=== PATIENT | male | born 1985 | race Caucasian/White ===

== ENCOUNTER 2018-02-06 18:38 | Emergency (ER) | payer OTHER, SELFPAY ==
--- NOTE | 2018-02-06 19:38 | EDPHYS ---
Physician Documentation [facility] Name: Karl Andujar Age: 32 yrs Sex: Male : 1985 Arrival Date: 02/06/2018 Time: 18:41 Bed 24 Private MD: ED Physician Gliberto Tracey HPI: 02/06 19:08 This 32 yrs old Male presents to ER via Ambulatory with complaints of kav Medication Refill. 19:25 The patient presents to the emergency department requesting refill(s) for: Zoloft, kav HYDROXIZINE, GABAPENTIN. Patient reports that [facility] and is need of meds until the bulk package arrives.. Historical: - Allergies: 18:53 No Known Allergies; sv - PMHx: 18:53 None; sv - PSHx: 18:53 Eye surgery; sv - Immunization history:: Adult Immunizations up to date. - Social history:: Smoking status: Patient uses tobacco products, smokes one-half pack cigarettes per day. - Ebola Screening: : No symptoms or risks identified at this time. - Family history:: not pertinent. - Hospitalizations: : No recent hospitalization is reported. ROS: 19:33 Constitutional: Negative for fever, chills, and weight loss, Eyes: Negative for injury, kav pain, redness, and discharge, ENT: Negative for injury, pain, and discharge, Neck: Negative for injury, pain, and swelling, Cardiovascular: Negative for chest pain, palpitations, and edema, Respiratory: Negative for shortness of breath, cough, wheezing, and pleuritic chest pain, Abdomen/GI: Negative for abdominal pain, nausea, vomiting, diarrhea, and constipation, Back: Negative for injury and pain, : Negative for injury, bleeding, discharge, and swelling, MS/Extremity: Negative for injury and deformity, Skin: Negative for injury, rash, and discoloration, Neuro: Negative for headache, weakness, numbness, tingling, and seizure, Allergy/Immunology: Negative for hives, rash, and allergies, Endocrine: Negative for neck swelling, polydipsia, polyuria, polyphagia, and marked weight changes, Hematologic/Lymphatic: Negative for swollen nodes, abnormal bleeding, and unusual bruising. 19:33 Psych: Positive for anxiety, depression. Exam: 19:33 Constitutional: This is a well developed, well nourished patient who is awake, alert, kav and in no acute distress. Head/Face: Normocephalic, atraumatic. Eyes: Pupils equal round and reactive to light, extra-ocular motions intact. Lids and lashes normal. Conjunctiva and sclera are non-icteric and not injected. Cornea within normal limits. Periorbital areas with no swelling, redness, or edema. ENT: Nares patent. No nasal discharge, no septal abnormalities noted. Tympanic membranes are normal and external auditory canals are clear. Oropharynx with no redness, swelling, or masses, exudates, or evidence of obstruction, uvula midline. Mucous membranes moist. Neck: Trachea midline, no thyromegaly or masses palpated, and no cervical lymphadenopathy. Supple, full range of motion without nuchal rigidity, or vertebral point tenderness. No Meningismus. Chest/axilla: Normal chest wall appearance and motion. Nontender with no deformity. No lesions are appreciated. Cardiovascular: Regular rate and rhythm with a normal S1 and S2. No gallops, murmurs, or rubs. Normal PMI, no JVD. No pulse deficits. Respiratory: Lungs have equal breath sounds bilaterally, clear to auscultation and percussion. No rales, rhonchi or wheezes noted. No increased work of breathing, no retractions or nasal flaring. Abdomen/GI: Soft, non-tender, with normal bowel sounds. No distension or tympany. No guarding or rebound. No evidence of tenderness throughout. Back: No spinal tenderness. No costovertebral tenderness. Full range of motion. Skin: Warm, dry with normal turgor. Normal color with no rashes, no lesions, and no evidence of cellulitis. MS/ Extremity: Pulses equal, no cyanosis. Neurovascular intact. Full, normal range of motion. Neuro: Awake and alert, GCS 15, oriented to person, place, time, and situation. Cranial nerves II-XII grossly intact. Motor strength 5/5 in all extremities. Sensory grossly intact. Cerebellar exam normal. Normal gait. 19:33 Psych: Behavior/mood is pleasant, Affect is calm, Oriented to person, place, time, Patient has no thoughts/intents to harm self or others. Judgement / Insight is normal. Memory is normal. Delusions/hallucinations are not present. Vital Signs: 18:54 BP 143 / 93; Pulse 96; Resp 18; Temp 98.6; Pulse Ox 97% ; Weight 68.04 kg; Height 5 ft. sv 3 in. (160.02 cm); Pain 0/10; 20:06 BP 121 / 82; Pulse 83; Resp 18; Pulse Ox 97% on R/A; tl3 18:54 Body Mass Index 26.57 (68.04 kg, 160.02 cm) sv MDM: 19:00 Medical screening is not applicable. kav 19:33 Data reviewed: vital signs, nurses notes. kav Administered Medications: No medications were administered Disposition: 02/06/18 19:38 Discharged to Home. Impression: MEDICATION REFILL, Anxiety disorder, unspecified, Major depressive disorder, recurrent. - Condition is Stable. - Discharge Instructions: Generalized Anxiety Disorder, Major Depressive Disorder, [id number]. - Prescriptions for gabapentin 400 mg Oral capsule - take 3 capsule by ORAL route 3 times per day; 270 capsule. Hydroxyzine HCl 50 mg Oral Tablet - take 1 tablet by ORAL route every 8 hours As needed; 30 tablet. Zoloft 50 mg Oral Tablet - take 2 tablet by ORAL route once daily; 60 tablet. - Medication Reconciliation Form, Thank You Letter form. - Follow up: Private Physician; When: 5 - 6 days; Reason: Recheck today's complaints, Continuance of care, Re-evaluation by your physician. - Problem is chronic. - Symptoms are unchanged. Addendum: 02/15/2018 21:07 Co-signature as Attending Physician, Gilberto Tracey MD. r n Signatures: Yesenia Alston RN RN sv Vern, Katherine, Gilberto Olson MD MD rn Lowrey, Tammy, RN RN tl3 Corrections: (The following items were deleted from the chart) 02/06 20:07 19:38 02/06/2018 19:38 Discharged to Home. Impression: MEDICATION REFILL; Anxiety tl3 disorder, unspecified; Major depressive disorder, recurrent. Condition is Stable. Forms are Medication Reconciliation Form, Thank You Letter, Antibiotic Education, Prescription Opioid Use. Follow up: Private Physician; When: 5 - 6 days; Reason: Recheck today's complaints, Continuance of care, Re-evaluation by your physician. Problem is chronic. Symptoms are unchanged. kav
--- NOTE | 2018-02-06 19:38 | ER ---
Nurse's Notes [facility] Name: Karl Andujar Age: 32 yrs Sex: Male : 1985 Arrival Date: 02/06/2018 Time: 18:41 Bed 24 Private MD: Diagnosis: MEDICATION REFILL;Anxiety disorder, unspecified;Major depressive disorder, recurrent Presentation: 02/06 18:52 Presenting complaint: Patient states: needs refill for zoloft, hydroxyzine and sv gabapentin. Transition of care: patient was not received from another setting of care. Onset of symptoms was February 06, 2018. Care prior to arrival: None. 18:52 Method Of Arrival: Ambulatory sv 18:52 Acuity: IRENE 5 sv 20:07 Risk Assessment: Do you want to hurt yourself or someone else? Patient reports no tl3 desire to harm self or others. Initial Sepsis Screen: Does the patient meet any 2 criteria? No. Patient's initial sepsis screen is negative. Does the patient have a suspected source of infection? No. Patient's initial sepsis screen is negative. Triage Assessment: 20:07 General: Appears in no apparent distress. comfortable. tl3 Historical: - Allergies: 18:53 No Known Allergies; sv - PMHx: 18:53 None; sv - PSHx: 18:53 Eye surgery; sv - Immunization history:: Adult Immunizations up to date. - Social history:: Smoking status: Patient uses tobacco products, smokes one-half pack cigarettes per day. - Ebola Screening: : No symptoms or risks identified at this time. - Family history:: not pertinent. - Hospitalizations: : No recent hospitalization is reported. Screenin:59 Abuse screen: Denies threats or abuse. Nutritional screening: No deficits noted. tl3 Tuberculosis screening: No symptoms or risk factors identified. Fall Risk None identified. Assessment: 18:59 Reassessment: pt has been out of his meds and needs refills. General: Appears in no tl3 apparent distress. comfortable, slender, well groomed, well developed, well nourished, Behavior is calm, cooperative, appropriate for age. Pain: Denies pain. Neuro: Level of Consciousness is awake, alert, obeys commands, Oriented to person, place, time, situation, Appropriate for age. Cardiovascular: Patient's skin is warm and dry. Respiratory: Airway is patent Respiratory effort is even, unlabored, Respiratory pattern is regular, symmetrical. GI: No signs and/or symptoms were reported involving the gastrointestinal system. : No signs and/or symptoms were reported regarding the genitourinary system. EENT: No signs and/or symptoms were reported regarding the EENT system. Derm: No signs and/or symptoms reported regarding the dermatologic system. Musculoskeletal: No signs and/or symptoms reported regarding the musculoskeletal system. 20:06 Reassessment: Patient appears in no apparent distress at this time. No changes from tl3 previously documented assessment. Patient and/or family updated on plan of care and expected duration. Pain level reassessed. Patient is alert, oriented x 3, equal unlabored respirations, skin warm/dry/pink. Vital Signs: 18:54 BP 143 / 93; Pulse 96; Resp 18; Temp 98.6; Pulse Ox 97% ; Weight 68.04 kg; Height 5 ft. sv 3 in. (160.02 cm); Pain 0/10; 20:06 BP 121 / 82; Pulse 83; Resp 18; Pulse Ox 97% on R/A; tl3 18:54 Body Mass Index 26.57 (68.04 kg, 160.02 cm) sv ED Course: 18:41 Patient arrived in ED. mr 18:53 Triage completed. sv 18:54 Arm band placed on right wrist. Patient placed in waiting room, Patient notified of sv wait time. 18:58 Calista Cuadra, RHETT is Primary Nurse. tl3 18:59 Patient has correct armband on for positive identification. tl3 18:59 No provider procedures requiring assistance completed. Patient did not have IV access tl3 during this emergency room visit. 19:00 [facility] Lowe FNP [facility]. jennifer 19:00 Gilberto Tracey MD is Attending Physician. jennifer Administered Medications: No medications were administered Outcome: 19:38 Discharge ordered by . jennifer 20:06 Discharged to home ambulatory. tl3 20:06 Condition: stable 20:06 Discharge instructions given to patient, Instructed on discharge instructions, follow up and referral plans. medication usage, Demonstrated understanding of instructions, follow-up care, medications, Prescriptions given X 3. 20:07 Patient left the ED. tl3 Signatures: Yesenia Alston RN RN Bindu Lowe FNP FNP kav Rivera, Maria mr Khalif, Calista, RN RN tl3
== END 2018-02-06 20:07 | disposition home or self-care (01) ==
LOC: ER 18:38
DX: Z76.0 Encounter for issue of repeat prescription (principal); F41.9 Anxiety disorder, unspecified; F33.9 Major depressive disorder, recurrent, unspecified; F17.210 Nicotine dependence, cigarettes, uncomplicated
CPT/HCPCS: 99282

== ENCOUNTER 2018-03-13 18:40 | Emergency (ER) | payer SELFPAY ==
--- NOTE | 2018-03-13 20:37 | ER ---
Nurse's Notes [facility] Name: Karl Andujar Age: 32 yrs Sex: Male : 1985 Arrival Date: 03/13/2018 Time: 18:42 Bed Waiting Private MD: None, None Diagnosis: Presentation: 03/13 19:55 Presenting complaint: Accidentally charted on wrong patient. Info deleted. Pt no answer sr5 at 1915, 1925, 1930. Historical: ED Course: 18:42 Patient arrived in ED. sb2 18:42 None, None is Private Physician. sb2 19:30 Toño Pandey RN is Primary Nurse. sr5 19:32 Elton Graham MD is Attending Physician. tw4 19:32 Triage completed. sr5 Administered Medications: No medications were administered Outcome: 19:56 Patient left the ED. sr5 Signatures: Toño Pandey RN RN sr5 Elton Graham MD MD tw4 Kristie Garrison sb2 Corrections: (The following items were deleted from the chart) 19:56 19:31 Presenting complaint: Patient states: pain/swelling RIGHT upper teeth/gum/cheek x sr5 7 days. "I got a tooth infection but can't afford dentist until Sunday". sr5 19:56 19:31 Transition of care: patient was not received from another setting of care. sr5 sr5 19:56 19:31 Onset of symptoms was March 06, 2018 sr5 sr5 19:56 19:31 Risk Assessment: Do you want to hurt yourself or someone else? Patient reports no sr5 desire to harm self or others. sr5 19:56 19:31 Care prior to arrival: Medication(s) given: Tylenol, and Motrin approx 5pm sr5 sr5 19:56 19:31 Method Of Arrival: Ambulatory sr5 sr5 19:56 19:31 Acuity: IRENE 4 sr5 sr5 19:32 Allergies: No Known Allergies; sr5 sr5 19:32 Home Meds: None; sr5 sr5 19:32 PMHx: None; sr5 sr5 19:32 PSHx: None; sr5 sr5 19:56 19:32 BP 124 / 85; Pulse 89bpm; Resp 18bpm; Pulse Ox 98%; Temp 97.8F; 61.69 kg; Height sr5 5 ft. 4 in.; BMI: 23.3; Pain 10; sr5 19:56 19:32 Arm band placed on sr5 sr5
== END 2018-03-13 19:56 | disposition left against medical advice (07) ==
LOC: ER 18:40
DX: Z53.21 Procedure and treatment not carried out due to patient leaving prior to being seen by health care provider (principal)
CPT/HCPCS: 99281

== ENCOUNTER 2018-03-18 09:05 | Emergency (ER) | payer SELFPAY ==
--- NOTE | 2018-03-18 09:51 | EDPHYS ---
Physician Documentation [facility] Name: Karl Andujar Age: 32 yrs Sex: Male : 1985 Arrival Date: 03/18/2018 Time: 09:07 Bed 12 Private MD: ED Physician Carlton Hernandez HPI: 03/18 09:48 This 32 yrs old Male presents to ER via Ambulatory with complaints of Rx dontae refill. 09:48 needs meds. Onset: The symptoms/episode began/occurred 1 day(s) ago. Severity of dontae symptoms: At their worst the symptoms were needs meds , out. The patient has not experienced similar symptoms in the past. Historical: - Allergies: 09:16 No Known Allergies; hj - Home Meds: 09:16 Zoloft 100 mg Oral tab 1 tab once daily [Active]; prazosin 2 mg Oral cap 1 cap daily hj [Active]; hydroxyzine HCl 50 mg Oral tab 1 tab as needed [Active]; - PMHx: 09:16 Depression; Anxiety; nightmares; hj - PSHx: 09:16 None; hj - Immunization history:: Adult Immunizations up to date. - Social history:: Smoking status: Patient uses tobacco products, smokes one pack cigarettes per day. Patient/guardian denies using alcohol. - Ebola Screening: : Patient negative for fever greater than or equal to 101.5 degrees Fahrenheit, and additional compatible Ebola Virus Disease symptoms Patient denies exposure to infectious person Patient denies travel to an Ebola-affected area in the 21 days before illness onset. ROS: 09:49 Constitutional: Negative for fever, chills, and weight loss, Eyes: Negative for injury, dontae pain, redness, and discharge, ENT: Negative for injury, pain, and discharge, Neck: Negative for injury, pain, and swelling, Cardiovascular: Negative for chest pain, palpitations, and edema, Respiratory: Negative for shortness of breath, cough, wheezing, and pleuritic chest pain, Abdomen/GI: Negative for abdominal pain, nausea, vomiting, diarrhea, and constipation, Back: Negative for injury and pain, : Negative for injury, bleeding, discharge, and swelling, MS/Extremity: Negative for injury and deformity, Skin: Negative for injury, rash, and discoloration, Neuro: Negative for headache, weakness, numbness, tingling, and seizure, Psych: Negative for depression, anxiety, suicide ideation, homicidal ideation, and hallucinations, Allergy/Immunology: Negative for hives, rash, and allergies, Endocrine: Negative for neck swelling, polydipsia, polyuria, polyphagia, and marked weight changes, Hematologic/Lymphatic: Negative for swollen nodes, abnormal bleeding, and unusual bruising. Exam: 09:49 Constitutional: This is a well developed, well nourished patient who is awake, alert, dontae and in no acute distress. Head/Face: Normocephalic, atraumatic. Eyes: Pupils equal round and reactive to light, extra-ocular motions intact. Lids and lashes normal. Conjunctiva and sclera are non-icteric and not injected. Cornea within normal limits. Periorbital areas with no swelling, redness, or edema. ENT: Nares patent. No nasal discharge, no septal abnormalities noted. Tympanic membranes are normal and external auditory canals are clear. Oropharynx with no redness, swelling, or masses, exudates, or evidence of obstruction, uvula midline. Mucous membranes moist. Neck: Trachea midline, no thyromegaly or masses palpated, and no cervical lymphadenopathy. Supple, full range of motion without nuchal rigidity, or vertebral point tenderness. No Meningismus. Chest/axilla: Normal chest wall appearance and motion. Nontender with no deformity. No lesions are appreciated. Cardiovascular: Regular rate and rhythm with a normal S1 and S2. No gallops, murmurs, or rubs. Normal PMI, no JVD. No pulse deficits. Respiratory: Lungs have equal breath sounds bilaterally, clear to auscultation and percussion. No rales, rhonchi or wheezes noted. No increased work of breathing, no retractions or nasal flaring. Abdomen/GI: Soft, non-tender, with normal bowel sounds. No distension or tympany. No guarding or rebound. No evidence of tenderness throughout. Back: No spinal tenderness. No costovertebral tenderness. Full range of motion. Skin: Warm, dry with normal turgor. Normal color with no rashes, no lesions, and no evidence of cellulitis. MS/ Extremity: Pulses equal, no cyanosis. Neurovascular intact. Full, normal range of motion. Neuro: Awake and alert, GCS 15, oriented to person, place, time, and situation. Cranial nerves II-XII grossly intact. Motor strength 5/5 in all extremities. Sensory grossly intact. Cerebellar exam normal. Normal gait. Psych: Awake, alert, with orientation to person, place and time. Behavior, mood, and affect are within normal limits. Vital Signs: 09:17 BP 136 / 91; Pulse 98; Resp 18; Temp 98.1(TE); Pulse Ox 99% on R/A; Weight 68.04 kg; hj Height 5 ft. 3 in. (160.02 cm); Pain 0/10; 09:17 Body Mass Index 26.57 (68.04 kg, 160.02 cm) hj MDM: 09:20 Patient medically screened. dontae Administered Medications: No medications were administered Disposition: 03/18/18 09:51 Discharged to Home. Impression: Major depressive disorder, recurrent - hx of, Anxiety disorder, unspecified - hx of. - Condition is Stable. - Discharge Instructions: Panic Attacks, [id number], Generalized Anxiety Disorder. - Prescriptions for Zoloft 100 mg Oral tablet - take 1 tablet by ORAL route once daily; 5 tablet. gabapentin 400 mg Oral capsule - take 1 capsule by ORAL route 3 times per day; 15 capsule. Hydroxyzine HCl 50 mg Oral Tablet - take 1 tablet by ORAL route every 8 hours As needed; 20 tablet. Prazosin 2 mg Oral Capsule - take 1 capsule by ORAL route once daily; 5 capsule. - Medication Reconciliation Form, Thank You Letter, Antibiotic Education, Prescription Opioid Use form. - Follow up: Private Physician; When: 2 - 3 days; Reason: Recheck today's complaints, Continuance of care, Re-evaluation by your physician. - Problem is new. - Symptoms have improved. Signatures: Carlton Hernandez MD MD cha Smirch, Shelby, RN RN Siva Manrique RN RN Corrections: (The following items were deleted from the chart) 10:00 09:51 03/18/2018 09:51 Discharged to Home. Impression: Major depressive disorder, ss recurrent - hx of; Anxiety disorder, unspecified - hx of. Condition is Stable. Forms are Medication Reconciliation Form, Thank You Letter, Antibiotic Education, Prescription Opioid Use. Follow up: Private Physician; When: 2 - 3 days; Reason: Recheck today's complaints, Continuance of care, Re-evaluation by your physician. Problem is new. Symptoms have improved. dontae
--- NOTE | 2018-03-18 09:51 | ER ---
Nurse's Notes [facility] Name: Karl Andujar Age: 32 yrs Sex: Male : 1985 Arrival Date: 03/18/2018 Time: 09:07 Bed 12 Private MD: Diagnosis: Major depressive disorder, recurrent-hx of;Anxiety disorder, unspecified-hx of Presentation: 03/18 09:11 Presenting complaint: Patient states: i just want a refill of the following medications: ,Zoloft 100 mg, hydroxyzine 50 mg; prazosin 2mg; the [place] hasnt sent the bulk of ref[place] meds; denies symptoms;. Transition of care: patient was not received from another setting of care. Onset of symptoms was March 18, 2018. Risk Assessment: Do you want to hurt yourself or someone else? Patient reports no desire to harm self or others. Initial Sepsis Screen: Does the patient meet any 2 criteria? No. Patient's initial sepsis screen is negative. Does the patient have a suspected source of infection? No. Patient's initial sepsis screen is negative. Care prior to arrival: None. 09:11 Method Of Arrival: Ambulatory 09:11 Acuity: IRENE 5 hj Triage Assessment: 09:17 General: Appears in no apparent distress. comfortable, Behavior is calm, cooperative, hj appropriate for age. Pain: Denies pain. Historical: - Allergies: 09:16 No Known Allergies; hj - Home Meds: 09:16 Zoloft 100 mg Oral tab 1 tab once daily [Active]; prazosin 2 mg Oral cap 1 cap daily hj [Active]; hydroxyzine HCl 50 mg Oral tab 1 tab as needed [Active]; - PMHx: 09:16 Depression; Anxiety; nightmares; hj - PSHx: 09:16 None; hj - Immunization history:: Adult Immunizations up to date. - Social history:: Smoking status: Patient uses tobacco products, smokes one pack cigarettes per day. Patient/guardian denies using alcohol. - Ebola Screening: : Patient negative for fever greater than or equal to 101.5 degrees Fahrenheit, and additional compatible Ebola Virus Disease symptoms Patient denies exposure to infectious person Patient denies travel to an Ebola-affected area in the 21 days before illness onset. Screenin:17 Abuse screen: Denies threats or abuse. Denies injuries from another. Nutritional hj screening: No deficits noted. Tuberculosis screening: No symptoms or risk factors identified. Fall Risk None identified. Assessment: 09:30 General: Appears in no apparent distress. comfortable, Behavior is calm, cooperative, ss Denies fever, feeling ill, fatigue, chills. Pain: Denies pain. Neuro: Level of Consciousness is awake, alert, obeys commands. Cardiovascular: Capillary refill < 3 seconds is brisk in bilateral fingers. Respiratory: Airway is patent Respiratory effort is even, unlabored, Respiratory pattern is regular, symmetrical. GI: Patient currently denies abdominal pain, diarrhea, nausea, vomiting. EENT: Nares are clear. Derm: Skin is dry, Skin is pink, warm \T\ dry. normal. Musculoskeletal: Circulation, motion, and sensation intact. Range of motion: intact in all extremities, Swelling absent. Vital Signs: 09:17 BP 136 / 91; Pulse 98; Resp 18; Temp 98.1(TE); Pulse Ox 99% on R/A; Weight 68.04 kg; hj Height 5 ft. 3 in. (160.02 cm); Pain 0/10; 09:17 Body Mass Index 26.57 (68.04 kg, 160.02 cm) ED Course: 09:07 Patient arrived in ED. sb2 09:15 Triage completed. hj 09:17 Arm band placed on right wrist. hj 09:17 Patient has correct armband on for positive identification. Bed in low position. Call light in reach. Adult w/ patient. 09:20 Carlton Hernandez MD is Attending Physician. [facility] 09:59 Jacquie Prieto, RN is Primary Nurse. 09:59 No provider procedures requiring assistance completed. Patient did not have IV access ss during this emergency room visit. Administered Medications: No medications were administered Outcome: 09:51 Discharge ordered by . [facility] 09:59 Discharged to home ambulatory. ss 09:59 Condition: good 09:59 Discharge instructions given to patient, Instructed on discharge instructions, follow up and referral plans. medication usage, Demonstrated understanding of instructions, follow-up care, medications, Prescriptions given X 4. 10:00 Patient left the ED. ss Signatures: Carlton Hernandez MD MD cha Smirch, Shelby, RN RN Siva Veliz RN RN Kristie Garrison sb2
== END 2018-03-18 10:00 | disposition home or self-care (01) ==
LOC: ER 09:05
DX: Z76.0 Encounter for issue of repeat prescription (principal); F33.9 Major depressive disorder, recurrent, unspecified; F41.9 Anxiety disorder, unspecified
CPT/HCPCS: 99282

== ENCOUNTER 2018-06-26 17:55 | Emergency (ER) | payer OTHER ==
--- NOTE | 2018-06-26 19:40 | ER ---
Nurse's Notes [facility] Name: Karl Andujar Age: 32 yrs Sex: Male : 1985 Arrival Date: 06/26/2018 Time: 17:59 Bed DIS1 Private MD: Diagnosis: Encounter for issue of repeat prescription Presentation: 06/26 18:20 Presenting complaint: Patient states: "I wanted to get a prescription for Zoloft, aa5 Buspirone, and gabapentin because I ran out". Transition of care: patient was not received from another setting of care. Onset of symptoms was June 2018. Risk Assessment: Do you want to hurt yourself or someone else? Patient reports no desire to harm self or others. Initial Sepsis Screen: Does the patient meet any 2 criteria? No. Patient's initial sepsis screen is negative. Does the patient have a suspected source of infection? No. Patient's initial sepsis screen is negative. Care prior to arrival: None. 18:20 Method Of Arrival: Ambulatory aa5 18:20 Acuity: IRENE 5 aa5 Historical: - Home Meds: 18:23 Zoloft 150mg Oral tab 1 tab once daily [Active]; Buspirone Oral 3 times per day aa5 [Active]; gabapentin 400 mg oral cap 3 times per day [Active]; hydroxyzine HCl 50 mg Oral tab 1 tab as needed [Active]; prazosin 2 mg Oral cap 1 cap daily [Active]; - PMHx: 18:23 Anxiety; Depression; nightmares; aa5 - PSHx: 18:23 None; aa5 - Immunization history:: Adult Immunizations up to date. - Social history:: Smoking status: Patient/guardian denies using tobacco. - Ebola Screening: : No symptoms or risks identified at this time. Screenin:00 Abuse screen: Denies threats or abuse. Denies injuries from another. Nutritional iw screening: No deficits noted. Tuberculosis screening: No symptoms or risk factors identified. Fall Risk None identified. Assessment: 19:59 General: Appears in no apparent distress. Behavior is calm, cooperative. Pain: Denies iw pain. Neuro: Level of Consciousness is awake, alert, obeys commands, Moves all extremities. Full function. Cardiovascular: Heart tones S1 S2 present. Respiratory: Respiratory effort is even, unlabored, Respiratory pattern is regular. Derm: Skin is intact, is healthy with good turgor. Vital Signs: 18:23 BP 121 / 83; Pulse 88; Resp 18 S; Temp 98.7(TE); Pulse Ox 100% on R/A; Weight 66.36 kg aa5 (M); Height 5 ft. 3 in. (160.02 cm) (R); Pain 0/10; 18:23 Body Mass Index 25.92 (66.36 kg, 160.02 cm) aa5 ED Course: 17:59 Patient arrived in ED. mr 18:17 [facility] Vel[facility]-C [facility] kb 18:17 Gilberto Tracey MD is Attending Physician. kb 18:20 Arm band placed on. aa5 18:21 Triage completed. aa5 19:29 Kylie Acosta, RN is Primary Nurse. iw 20:00 Patient has correct armband on for positive identification. iw 20:00 No provider procedures requiring assistance completed. Patient did not have IV access iw during this emergency room visit. Administered Medications: No medications were administered Outcome: 19:40 Discharge ordered by MD. kb 20:00 Discharged to home ambulatory. iw 20:00 Condition: good 20:00 Discharge instructions given to patient, Instructed on discharge instructions, follow up and referral plans. medication usage, Demonstrated understanding of instructions, follow-up care, medications, Prescriptions given X 3. 20:02 Patient left the ED. iw Signatures: Christina Velásquez FNP-C FNP-Freya Leona Apaircio Kylie Acosta, RN RHETT iw Dorita Cedillo RN RN aa5
--- NOTE | 2018-06-26 19:41 | EDPHYS ---
Physician Documentation [facility] Name: Karl Andujar Age: 32 yrs Sex: Male : 1985 Arrival Date: 06/26/2018 Time: 17:59 Bed DIS1 Private MD: ED Physician Gilberto Tracey HPI: 06/26 19:41 This 32 yrs old Male presents to ER via Ambulatory with complaints of kb Medication Refill. 19:41 The patient presents to the emergency department requesting refill(s) for: Neurontin, kb Zoloft. The patient chronically suffers from anxiety, depression. The patient has not experienced similar symptoms in the past. The patient has not recently seen a physician. [facility] and his meds are in the mail, but he ran out today and the refills won't be delivered for 7-10 days.. Historical: - Home Meds: 18:23 Zoloft 150mg Oral tab 1 tab once daily [Active]; Buspirone Oral 3 times per day aa5 [Active]; gabapentin 400 mg oral cap 3 times per day [Active]; hydroxyzine HCl 50 mg Oral tab 1 tab as needed [Active]; prazosin 2 mg Oral cap 1 cap daily [Active]; - PMHx: 18:23 Anxiety; Depression; nightmares; aa5 - PSHx: 18:23 None; aa5 - Immunization history:: Adult Immunizations up to date. - Social history:: Smoking status: Patient/guardian denies using tobacco. - Ebola Screening: : No symptoms or risks identified at this time. ROS: 19:40 Constitutional: Negative for fever, chills, and weight loss, Cardiovascular: Negative kb for chest pain, palpitations, and edema, Respiratory: Negative for shortness of breath, cough, wheezing, and pleuritic chest pain, Abdomen/GI: Negative for abdominal pain, nausea, vomiting, diarrhea, and constipation, Back: Negative for injury and pain, MS/Extremity: Negative for injury and deformity, Skin: Negative for injury, rash, and discoloration, Neuro: Negative for headache, weakness, numbness, tingling, and seizure. Exam: 19:41 Constitutional: This is a well developed, well nourished patient who is awake, alert, kb and in no acute distress. Head/Face: Normocephalic, atraumatic. ENT: Nares patent. No nasal discharge, no septal abnormalities noted. Tympanic membranes are normal and external auditory canals are clear. Oropharynx with no redness, swelling, or masses, exudates, or evidence of obstruction, uvula midline. Mucous membranes moist. Neck: Trachea midline, no thyromegaly or masses palpated, and no cervical lymphadenopathy. Supple, full range of motion without nuchal rigidity, or vertebral point tenderness. No Meningismus. Chest/axilla: Normal chest wall appearance and motion. Nontender with no deformity. No lesions are appreciated. Cardiovascular: Regular rate and rhythm with a normal S1 and S2. No gallops, murmurs, or rubs. Normal PMI, no JVD. No pulse deficits. Respiratory: Lungs have equal breath sounds bilaterally, clear to auscultation and percussion. No rales, rhonchi or wheezes noted. No increased work of breathing, no retractions or nasal flaring. Abdomen/GI: Soft, non-tender, with normal bowel sounds. No distension or tympany. No guarding or rebound. No evidence of tenderness throughout. Skin: Warm, dry with normal turgor. Normal color with no rashes, no lesions, and no evidence of cellulitis. MS/ Extremity: Pulses equal, no cyanosis. Neurovascular intact. Full, normal range of motion. Neuro: Awake and alert, GCS 15, oriented to person, place, time, and situation. Cranial nerves II-XII grossly intact. Motor strength 5/5 in all extremities. Sensory grossly intact. Cerebellar exam normal. Normal gait. Vital Signs: 18:23 BP 121 / 83; Pulse 88; Resp 18 S; Temp 98.7(TE); Pulse Ox 100% on R/A; Weight 66.36 kg aa5 (M); Height 5 ft. 3 in. (160.02 cm) (R); Pain 0/10; 18:23 Body Mass Index 25.92 (66.36 kg, 160.02 cm) aa5 MDM: 19:31 Patient medically screened. kb 19:41 Data reviewed: vital signs, nurses notes. Data interpreted: Pulse oximetry: on room air kb is 100 %. Interpretation: normal. Counseling: I had a detailed discussion with the patient and/or guardian regarding: the historical points, exam findings, and any diagnostic results supporting the discharge/admit diagnosis, the need for outpatient follow up, a family practitioner, to return to the emergency department if symptoms worsen or persist or if there are any questions or concerns that arise at home. Administered Medications: No medications were administered Disposition: 06/26/18 19:40 Discharged to Home. Impression: Encounter for issue of repeat prescription. - Condition is Stable. - Discharge Instructions: Medicine Refill at the Emergency Department. - Prescriptions for Neurontin 400 mg Oral capsule - take 1 capsule by ORAL route 3 times per day; 21 capsule. Zoloft 100 mg Oral tablet - take 1 tablet by ORAL route once daily; 7 tablet. Zoloft 50 mg Oral Tablet - take 1 tablet by ORAL route once daily; 7 tablet. - Medication Reconciliation Form, Thank You Letter, Antibiotic Education, Prescription Opioid Use form. - Follow up: Emergency Department; When: As needed; Reason: Worsening of condition. Follow up: Private Physician; When: 2 - 3 days; Reason: Recheck today's complaints, Continuance of care, Re-evaluation by your physician. Addendum: 07/02/2018 01:38 Co-signature as Attending Physician, Gilberto Tracey MD. r n Signatures: Christina Velásquez, MELISSA-C TRANSITIONAL CARE NURSE-Ckb Kylie Acosta RN RN iw Nieto, Roman, MD MD rn Calderon, Audri, RN RN aa5 Corrections: (The following items were deleted from the chart) 06/26 20:02 19:40 06/26/2018 19:40 Discharged to Home. Impression: Encounter for issue of repeat iw prescription. Condition is Stable. Prescriptions for Neurontin 400 mg Oral capsule - take 1 capsule by ORAL route 3 times per day; 21 capsule, Zoloft 100 mg Oral tablet - take 1 tablet by ORAL route once daily; 7 tablet, Zoloft 50 mg Oral Tablet - take 1 tablet by ORAL route once daily; 7 tablet. and Forms are Medication Reconciliation Form, Thank You Letter, Antibiotic Education, Prescription Opioid Use. Follow up: Emergency Department; When: As needed; Reason: Worsening of condition. Follow up: Private Physician; When: 2 - 3 days; Reason: Recheck today's complaints, Continuance of care, Re-evaluation by your physician. kb
== END 2018-06-26 20:02 | disposition home or self-care (01) ==
LOC: ER 17:55
DX: Z76.0 Encounter for issue of repeat prescription (principal); F41.9 Anxiety disorder, unspecified; F32.9 Major depressive disorder, single episode, unspecified
CPT/HCPCS: 99282

== ENCOUNTER 2018-08-27 08:09 | Emergency (ER) | payer OTHER ==
--- OUTSIDE RECORDS SUMMARY | 2018-08-27 08:20 | XMS REPORT ---
:1985 [facility] [address] [place] [address] [address] [place] [address] Care Team Providers Name Role Phone Unavailable Unavailable Unavailable Problems This patient has no known problems. Allergies, Adverse Reactions, Alerts This patient has no known allergies or adverse reactions. Medications This patient has no known medications.
--- NOTE | 2018-08-27 08:38 | ER ---
Nurse's Notes [facility] Name: Karl Andujar Age: 32 yrs Sex: Male : 1985 Arrival Date: 08/27/2018 Time: 08:14 Bed 12 Private MD: Diagnosis: Encounter for Medication Refill Presentation: 08/27 08:16 Presenting complaint: [facility] need [facility] days if possible. hb Transition of care: patient was not received from another setting of care. Onset of symptoms was August 27, 2018. Risk Assessment: Do you want to hurt yourself or someone else? Patient reports no desire to harm self or others. Initial Sepsis Screen: Does the patient meet any 2 criteria? No. Patient's initial sepsis screen is negative. Does the patient have a suspected source of infection? No. Patient's initial sepsis screen is negative. Care prior to arrival: None. 08:16 Method Of Arrival: Ambulatory hb 08:16 Acuity: IRENE 5 hb Triage Assessment: 08:50 General: Appears in no apparent distress. Behavior is calm, cooperative. iw Historical: - Allergies: 08:17 No Known Allergies; hb - Home Meds: 08:17 Buspirone Oral 3 times per day [Active]; gabapentin 400 mg Oral cap 3 times per day hb [Active]; hydroxyzine HCl 50 mg Oral tab 1 tab as needed [Active]; prazosin 2 mg Oral cap 1 cap daily [Active]; Zoloft 150mg Oral tab 1 tab once daily [Active]; - PMHx: 08:17 Anxiety; Depression; nightmares; hb - PSHx: 08:17 None; hb - Immunization history:: Adult Immunizations up to date. - Social history:: Smoking status: Patient/guardian denies using tobacco. - Ebola Screening: : No symptoms or risks identified at this time. Screenin:59 Abuse screen: Denies threats or abuse. Denies injuries from another. Nutritional iw screening: No deficits noted. Tuberculosis screening: No symptoms or risk factors identified. Fall Risk None identified. Assessment: 08:40 General: Appears in no apparent distress. Behavior is calm, cooperative. Pain: Denies iw pain. Neuro: Level of Consciousness is awake, alert, obeys commands, Oriented to person, place, time, situation, Moves all extremities. Full function. Cardiovascular: Patient's skin is warm and dry. Respiratory: Respiratory effort is even, unlabored, Respiratory pattern is regular. Derm: Skin is intact, is healthy with good turgor. Musculoskeletal: Range of motion: intact in all extremities. Vital Signs: 08:16 BP 153 / 89; Pulse 89; Resp 16; Temp 97.8; Pulse Ox 100% on R/A; hb ED Course: 08:14 Patient arrived in ED. mr 08:16 Triage completed. hb 08:17 Arm band placed on. hb 08:21 Gilberto Tracey MD is Attending Physician. rn 08:21 Ajith Lemon PA is PHCP. jr8 08:21 Kylie Acosta RN is Primary Nurse. iw 08:40 Patient has correct armband on for positive identification. iw 08:59 No provider procedures requiring assistance completed. Patient did not have IV access iw during this emergency room visit. Administered Medications: No medications were administered Outcome: 08:36 Discharge ordered by . jr8 08:59 Discharged to home ambulatory. iw 08:59 Condition: good 08:59 Discharge instructions given to patient, Instructed on discharge instructions, follow up and referral plans. medication usage, Demonstrated understanding of instructions, follow-up care, medications, Prescriptions given X 4. 09:00 Patient left the ED. iw Signatures: Leona Aparicio mr Kylie Acosta, RN RN Gilberto Tracey MD MD rn Roszak, Josh, PA PA [facility] Kenia Cormier RN RN
--- NOTE | 2018-08-27 08:39 | EDPHYS ---
Physician Documentation [facility] Name: Karl Andujar Age: 32 yrs Sex: Male : 1985 Arrival Date: 08/27/2018 Time: 08:14 Bed 12 Private MD: ED Physician Gilberto Tracey HPI: 08/27 08:33 This 32 yrs old Male presents to ER via Ambulatory with complaints of jr8 Medication Refill. 08:33 The patient presents to the emergency department requesting refill(s) for: Zoloft, jr8 Buspirone, gabapentin, hydroxyzine, prazosin. The patient chronically suffers from Depression, anxiety, PTSD, nightmares . It is unknown whether or not the patient has had similar symptoms in the past. It is unknown whether or not the patient has recently seen a physician. [facility] and meds were refilled but still in mail. Out of medication as of yesterday. Needs 7 day supply to get him through the week . Historical: - Allergies: 08:17 No Known Allergies; hb - Home Meds: 08:17 Buspirone Oral 3 times per day [Active]; gabapentin 400 mg Oral cap 3 times per day hb [Active]; hydroxyzine HCl 50 mg Oral tab 1 tab as needed [Active]; prazosin 2 mg Oral cap 1 cap daily [Active]; Zoloft 150mg Oral tab 1 tab once daily [Active]; - PMHx: 08:17 Anxiety; Depression; nightmares; hb - PSHx: 08:17 None; hb - Immunization history:: Adult Immunizations up to date. - Social history:: Smoking status: Patient/guardian denies using tobacco. - Ebola Screening: : No symptoms or risks identified at this time. ROS: 08:33 Eyes: Negative for injury, pain, redness, and discharge, ENT: Negative for injury, jr8 pain, and discharge, Neck: Negative for injury, pain, and swelling, Cardiovascular: Negative for chest pain, palpitations, and edema, Respiratory: Negative for shortness of breath, cough, wheezing, and pleuritic chest pain, Abdomen/GI: Negative for abdominal pain, nausea, vomiting, diarrhea, and constipation, Back: Negative for injury and pain, MS/Extremity: Negative for injury and deformity, Skin: Negative for injury, rash, and discoloration, Neuro: Negative for headache, weakness, numbness, tingling, and seizure. Exam: 08:33 Eyes: Pupils equal round and reactive to light, extra-ocular motions intact. Lids and jr8 lashes normal. Conjunctiva and sclera are non-icteric and not injected. Cornea within normal limits. Periorbital areas with no swelling, redness, or edema. ENT: Nares patent. No nasal discharge, no septal abnormalities noted. Tympanic membranes are normal and external auditory canals are clear. Oropharynx with no redness, swelling, or masses, exudates, or evidence of obstruction, uvula midline. Mucous membranes moist. Neck: Trachea midline, no thyromegaly or masses palpated, and no cervical lymphadenopathy. Supple, full range of motion without nuchal rigidity, or vertebral point tenderness. No Meningismus. Cardiovascular: Regular rate and rhythm with a normal S1 and S2. No gallops, murmurs, or rubs. Normal PMI, no JVD. No pulse deficits. Respiratory: Lungs have equal breath sounds bilaterally, clear to auscultation and percussion. No rales, rhonchi or wheezes noted. No increased work of breathing, no retractions or nasal flaring. Abdomen/GI: Soft, non-tender, with normal bowel sounds. No distension or tympany. No guarding or rebound. No evidence of tenderness throughout. Back: No spinal tenderness. No costovertebral tenderness. Full range of motion. Skin: Warm, dry with normal turgor. Normal color with no rashes, no lesions, and no evidence of cellulitis. MS/ Extremity: Pulses equal, no cyanosis. Neurovascular intact. Full, normal range of motion. Neuro: Awake and alert, GCS 15, oriented to person, place, time, and situation. Cranial nerves II-XII grossly intact. Motor strength 5/5 in all extremities. Sensory grossly intact. Cerebellar exam normal. Normal gait. Psych: Awake, alert, with orientation to person, place and time. Behavior, mood, and affect are within normal limits. Vital Signs: 08:16 BP 153 / 89; Pulse 89; Resp 16; Temp 97.8; Pulse Ox 100% on R/A; hb MDM: 08:21 Patient medically screened. rn 08:33 Data reviewed: vital signs, nurses notes, and as a result, I will discharge patient. jr8 Data interpreted: Pulse oximetry: on room air is 100 %. Interpretation: normal. Counseling: I had a detailed discussion with the patient and/or guardian regarding: the historical points, exam findings, and any diagnostic results supporting the discharge/admit diagnosis, the need for outpatient follow up, a family practitioner, to return to the emergency department if symptoms worsen or persist or if there are any questions or concerns that arise at home. Administered Medications: No medications were administered Disposition: 18:19 Co-signature as Attending Physician, Gilberto Tracey MD. rn Disposition: 08/27/18 08:36 Discharged to Home. Impression: Encounter for Medication Refill . - Condition is Stable. - Prescriptions for Hydroxyzine HCl 50 mg Oral Tablet - take 1 tablet by ORAL route every 8 hours As needed; 20 tablet. gabapentin 400 mg Oral capsule - take 1 capsule by ORAL route 3 times per day; 21 capsule. Prazosin 2 mg Oral Capsule - take 1 capsule by ORAL route once daily; 7 capsule. Zoloft 100 mg Oral tablet - take 1.5 tablet by ORAL route once daily; 11 tablet. buspirone 10 mg Oral tablet - take 1 tablet by ORAL route 3 times per day; 21 tablet. - Medication Reconciliation Form, Thank You Letter, Antibiotic Education, Prescription Opioid Use form. - Follow up: Private Physician; When: As needed; Reason: Recheck today's complaints, Continuance of care, Re-evaluation by your physician. - Problem is new. - Symptoms have improved. Signatures: Kylie Acosta RN RN Gilberto Tracey MD MD rn Roszak, Josh, PA PA jr8 Kenia Cormier RN RN Corrections: (The following items were deleted from the chart) 09:00 08:36 08/27/2018 08:36 Discharged to Home. Impression: Encounter for Medication Refill iw . Condition is Stable. Forms are Medication Reconciliation Form, Thank You Letter, Antibiotic Education, Prescription Opioid Use. Follow up: Private Physician; When: As needed; Reason: Recheck today's complaints, Continuance of care, Re-evaluation by your physician. Problem is new. Symptoms have improved. jr8
== END 2018-08-27 09:00 | disposition home or self-care (01) ==
LOC: ER 08:09
DX: Z76.0 Encounter for issue of repeat prescription (principal); F41.9 Anxiety disorder, unspecified; F32.9 Major depressive disorder, single episode, unspecified
CPT/HCPCS: 99282

== ENCOUNTER 2018-11-04 21:40 | Observation (INO) | payer OTHER ==
--- OUTSIDE RECORDS SUMMARY | 2018-11-04 21:42 | XMS REPORT ---
:1985 [facility] Address [address] [place] [address] [address] [place] [address] Care Team Providers Name Role Phone Unavailable Unavailable Unavailable Problems This patient has no known problems. Allergies, Adverse Reactions, Alerts This patient has no known allergies or adverse reactions. Medications This patient has no known medications.
[2018-11-04 22:29] LABS: Absolute Monocytes 0.8 K/uL (0.1-1.3); Absolute Neutrophil 4.9 K/uL (1.8-8.0); Basophils % 0.6 % (0-1.3); Eosinophils % 2.1 % (0-4.4); Lymphocytes % 45.2 % (15.3-44.8); MPV 7.8 fL (7.6-11.3); Monocytes % 6.9 % (3.3-12.3); RBC Red Blood Cell Count 4.38 M/uL (4.33-5.43)
[2018-11-04] MEDS ORDERED: ONDANSETRON 4 MG/2 ML VIAL ONE (22:32)
[2018-11-04] MEDS ORDERED: FENTANYL CITR 100 MCG/2 ML ONE (22:32)
[2018-11-04] MEDS ORDERED: PANTOPRAZOLE 40 MG INJ ONE (22:32)
[2018-11-04] MEDS ORDERED: NA CHLORIDE 0.9% 1,000 ML ONE (22:33)
[2018-11-04] MEDS ORDERED: OCTREOTIDE ACETATE 100 MCG/ML ONE (22:33)
[2018-11-04 22:44] LABS: ALT/SGPT 23 U/L (12-78); AST/SGOT 16 U/L (15-37); Albumin 4.3 g/dL (3.4-5.0); Alkaline Phosphatase 83 U/L (45-117); BUN Blood Urea Nitrogen 11 mg/dL (7-18); Bicarbonate 28 mmol/L (21-32); Bilirubin Direct 0.1 mg/dL (0-0.2); Bilirubin Total 0.3 mg/dL (0.2-1.0); Glucose Level 73 mg/dL (74-106); Lipase 129 U/L (73-393); Potassium 3.8 mmol/L (3.5-5.1); Protein, Total 7.4 g/dL (6.4-8.2); Sodium Level 142 mmol/L (136-145)
[2018-11-04] MEDS ORDERED: MORPHINE 4 MG/ML SYR IV PRN (23:30)
[2018-11-04] MEDS ORDERED: ACETAMINOPHEN 500 MG TAB PO PRN (23:30)
[2018-11-04] MEDS ORDERED: ONDANSETRON 4 MG/2 ML VIAL IV PRN (23:30)
--- NOTE | 2018-11-04 23:44 | ER ---
Nurse's Notes [facility] Name: Karl Andujar Age: 33 yrs Sex: Male : 1985 Arrival Date: 11/04/2018 Time: 21:41 Bed 25 Private MD: Diagnosis: Other gastritis with bleeding Presentation: 11/04 21:49 Presenting complaint: Patient states: vomiting blood the past hour, about 4-5 times; lp1 Denies any diarrhea. Transition of care: patient was not received from another setting of care. Onset of symptoms was November 04, 2018 at 21:00. Risk Assessment: Do you want to hurt yourself or someone else? Patient reports no desire to harm self or others. Initial Sepsis Screen: Does the patient meet any 2 criteria? No. Patient's initial sepsis screen is negative. Does the patient have a suspected source of infection? No. Patient's initial sepsis screen is negative. Care prior to arrival: None. 21:49 Method Of Arrival: Ambulatory lp1 21:49 Acuity: IRENE 2 lp1 Historical: - Allergies: 21:51 No Known Allergies; lp1 - Home Meds: 21:51 Buspirone Oral 3 times per day [Active]; gabapentin 400 mg Oral cap 3 times per day lp1 [Active]; hydroxyzine HCl 50 mg Oral tab 1 tab as needed [Active]; prazosin 2 mg Oral cap 1 cap daily [Active]; Cymbalta oral oral [Active]; - PMHx: 21:51 Anxiety; Depression; nightmares; lp1 - PSHx: 21:51 None; lp1 - Immunization history:: Adult Immunizations up to date. - Social history:: Smoking status: Patient uses tobacco products, smokes one pack cigarettes per day. Patient/guardian denies using alcohol. - Ebola Screening: : No symptoms or risks identified at this time. Screenin:34 Abuse screen: Denies threats or abuse. Denies injuries from another. Nutritional ed1 screening: No deficits noted. Tuberculosis screening: No symptoms or risk factors identified. Fall Risk None identified. Assessment: 22:34 General: Appears uncomfortable, Behavior is anxious. Pain: Complains of pain in abdomen ed1 Pain currently is 10 out of 10 on a pain scale. Quality of pain is described as sharp, stabbing, Pain began 4 hours ago. Is continuous. Neuro: Level of Consciousness is awake, alert, obeys commands, Oriented to person, place, time, situation. Cardiovascular: Denies chest pain, Heart tones S1 S2 present. Respiratory: Airway is patent Respiratory effort is even, unlabored, Respiratory pattern is regular, symmetrical, Breath sounds are clear bilaterally. Denies cough, shortness of breath. GI: Abdomen is non-distended, Pt is actively vomiting bright red blood, Bowel sounds present X 4 quads. Abd is soft X 4 quads Abdomen is tender to palpation in right upper quadrant and left upper quadrant Reports nausea, vomiting, Patient currently denies diarrhea. : No signs and/or symptoms were reported regarding the genitourinary system. EENT: No signs and/or symptoms were reported regarding the EENT system. Derm: Skin is intact, is healthy with good turgor, Skin is dry, Skin is normal, Skin temperature is warm. Musculoskeletal: Circulation, motion, and sensation intact. Range of motion: intact in all extremities. 23:08 Reassessment: Patient appears in no apparent distress at this time. Patient and/or ed1 family updated on plan of care and expected duration. Pain level reassessed. Patient is alert, oriented x 3, equal unlabored respirations, skin warm/dry/pink. Patient states feeling better. Patient states symptoms have improved. Vital Signs: 21:50 BP 127 / 90; Pulse 112; Resp 18; Temp 99(O); Pulse Ox 97% on R/A; Weight 68.04 kg; lp1 Height 5 ft. 3 in. (160.02 cm); Pain 10/10; 23:08 BP 115 / 86; Pulse 91; Resp 19; Pulse Ox 100% on R/A; Pain 6/10; ed1 11/05 00:22 BP 94 / 71; Pulse 71; Resp 16; Temp 98.2(O); Pulse Ox 95% on R/A; Pain 5/10; ed1 11/04 21:50 Body Mass Index 26.57 (68.04 kg, 160.02 cm) lp1 ED Course: 11/04 21:41 Patient arrived in ED. am2 21:50 Triage completed. lp1 21:50 Arm band placed on right wrist. lp1 21:59 Wilbert Bingham MD is Attending Physician. gs 22:14 Raya, Ashely, RN is Primary Nurse. ed1 22:32 Initial lab(s) drawn, by me, sent to lab. T\T\S collected, blood band applied to patient. ed1 Inserted saline lock: 20 gauge in left antecubital area, using aseptic technique. Blood collected. 22:34 Patient has correct armband on for positive identification. Placed in gown. Bed in low ed1 position. Call light in reach. Side rails up X 1. Adult w/ patient. Pulse ox on. NIBP on. 23:42 Jyothi Mccormick MD is Hospitalizing Provider. 11/05 00:02 Inserted saline lock: 20 gauge in left hand, using aseptic technique. bb 00:53 No provider procedures requiring assistance completed. Patient admitted, IV remains in ed1 place. intact, No redness/swelling at site. Administered Medications: 04 22:32 Drug: ProTONIX 40 mg Route: IVP; Site: left antecubital; ed1 23:10 Follow up: Response: No adverse reaction ed1 22:32 Drug: Octreotide 50 mcg Route: IV; Rate: bolus; Site: left antecubital; ed1 23:10 Follow up: Response: No adverse reaction; IV Status: Completed infusion ed1 22:33 Drug: NS 0.9% 1000 ml Route: IV; Rate: 1 bolus; Site: left antecubital; ed1 11/05 00:56 Follow up: IV Status: Infusion continued upon admission ed1 11/04 22:33 Drug: fentaNYL (PF) 50 mcg Route: IVP; Site: left antecubital; ed1 23:09 Follow up: Response: No adverse reaction; Pain is decreased ed1 22:33 Drug: Zofran 4 mg Route: IVP; Site: left antecubital; ed1 23:10 Follow up: Response: No adverse reaction; Nausea is decreased ed1 11/05 00:09 Drug: Octreotide Infusion (50 mcg/hr) - (Octreotide 500 mcg, NS 0.9% 500 ml) Route: IV; ed1 Rate: 50 ml/hr; Site: left hand; 00:55 Follow up: IV Status: Infusion continued upon admission ed1 00:09 Drug: ProTONIX 8 mg/hr Route: IV; Rate: 25 ml/hr; Site: left antecubital; ed1 00:55 Follow up: IV Status: Infusion continued upon admission ed1 Outcome: 11/04 23:43 Decision to Hospitalize by Provider. suhail 11/05 00:53 Admitted to Med/surg accompanied by nurse, family with patient, via wheelchair, room ed1 224, with chart, Report called to RHETT Oreilly Condition: stable Discharge instructions given to patient, family, Instructed on the need for admit, Demonstrated understanding of instructions. 00:55 Patient left the ED. ed1 Signatures: Bess Santiago RN RN bb Ashely Raya RN RN ed1 Sherry Catalan RN RN lp1 Krista Gutierrez am2 Wilbert Bingham MD MD gs Corrections: (The following items were deleted from the chart) 00:22 04 22:32 Inserted saline lock: 20 gauge in right antecubital area, using aseptic ed1 technique. Blood collected. ed1
--- NOTE | 2018-11-04 23:44 | EDPHYS ---
Physician Documentation [facility] Name: Karl Andujar Age: 33 yrs Sex: Male : 1985 Arrival Date: 11/04/2018 Time: 21:41 Bed 25 Private MD: ED Physician Wilbert Bingham HPI: 11/05 00:47 This 33 yrs old Male presents to ER via Ambulatory with complaints of gs Vomiting - blood. 00:47 The patient presents to the emergency department vomiting blood, bright red. Onset: The gs symptoms/episode began/occurred last night. Abdominal pain: described as crampy, located in the right upper quadrant, left upper quadrant, right lower quadrant and left lower quadrant. Modifying factors: The symptoms are alleviated by nothing, the symptoms are aggravated by nothing. Associated signs and symptoms: Pertinent negatives: chest pain, constipation, fever. Severity of symptoms: At their worst the symptoms were incapacitating in the emergency department the symptoms are unchanged. The patient has not experienced similar symptoms in the past. The patient has not recently seen a physician. Historical: - Allergies: 11/04 21:51 No Known Allergies; lp1 - Home Meds: 21:51 Buspirone Oral 3 times per day [Active]; gabapentin 400 mg Oral cap 3 times per day lp1 [Active]; hydroxyzine HCl 50 mg Oral tab 1 tab as needed [Active]; prazosin 2 mg Oral cap 1 cap daily [Active]; Cymbalta oral oral [Active]; - PMHx: 21:51 Anxiety; Depression; nightmares; lp1 - PSHx: 21:51 None; lp1 - Immunization history:: Adult Immunizations up to date. - Social history:: Smoking status: Patient uses tobacco products, smokes one pack cigarettes per day. Patient/guardian denies using alcohol. - Ebola Screening: : No symptoms or risks identified at this time. ROS: 11/05 00:47 All other systems are negative. gs Exam: 00:47 Head/Face: Normocephalic, atraumatic. Eyes: Pupils equal round and reactive to light, gs extra-ocular motions intact. Lids and lashes normal. Conjunctiva and sclera are non-icteric and not injected. Cornea within normal limits. Periorbital areas with no swelling, redness, or edema. ENT: Nares patent. No nasal discharge, no septal abnormalities noted. Tympanic membranes are normal and external auditory canals are clear. Oropharynx with no redness, swelling, or masses, exudates, or evidence of obstruction, uvula midline. Mucous membranes moist. Neck: Trachea midline, no thyromegaly or masses palpated, and no cervical lymphadenopathy. Supple, full range of motion without nuchal rigidity, or vertebral point tenderness. No Meningismus. Chest/axilla: Normal chest wall appearance and motion. Nontender with no deformity. No lesions are appreciated. Cardiovascular: Regular rate and rhythm with a normal S1 and S2. No gallops, murmurs, or rubs. Normal PMI, no JVD. No pulse deficits. Respiratory: Lungs have equal breath sounds bilaterally, clear to auscultation and percussion. No rales, rhonchi or wheezes noted. No increased work of breathing, no retractions or nasal flaring. 00:47 Back: No spinal tenderness. No costovertebral tenderness. Full range of motion. Skin: Warm, dry with normal turgor. Normal color with no rashes, no lesions, and no evidence of cellulitis. MS/ Extremity: Pulses equal, no cyanosis. Neurovascular intact. Full, normal range of motion. Neuro: Awake and alert, GCS 15, oriented to person, place, time, and situation. Cranial nerves II-XII grossly intact. Motor strength 5/5 in all extremities. Sensory grossly intact. Cerebellar exam normal. Normal gait. 00:47 Constitutional: The patient appears alert, awake. 00:47 Abdomen/GI: Palpation: moderate abdominal tenderness, in all quadrants, rebound tenderness, is not appreciated. Vital Signs: 11/04 21:50 BP 127 / 90; Pulse 112; Resp 18; Temp 99(O); Pulse Ox 97% on R/A; Weight 68.04 kg; lp1 Height 5 ft. 3 in. (160.02 cm); Pain 10/10; 23:08 BP 115 / 86; Pulse 91; Resp 19; Pulse Ox 100% on R/A; Pain 6/10; ed1 11/05 00:22 BP 94 / 71; Pulse 71; Resp 16; Temp 98.2(O); Pulse Ox 95% on R/A; Pain 5/10; ed1 11/04 21:50 Body Mass Index 26.57 (68.04 kg, 160.02 cm) lp1 MDM: 11/04 22:22 Patient medically screened. 11/05 00:47 Differential diagnosis: gastritis, diverticulitis, hemorrhagic shock, varices. Data gs reviewed: vital signs, nurses notes, lab test result(s), radiologic studies. Counseling: I had a detailed discussion with the patient and/or guardian regarding: the historical points, exam findings, and any diagnostic results supporting the discharge/admit diagnosis, lab results, the need for further work-up and treatment in the hospital. Physician consultation: Chema Connor MD and will see patient in inpatient room. 11/04 22:11 Order name: Basic Metabolic Panel; Complete Time: 22:57 11/04 22:11 Order name: CBC with Diff; Complete Time: 22:57 11/04 22:11 Order name: Hepatic Function; Complete Time: 22:57 11/04 22:11 Order name: Lipase; Complete Time: 22:57 11/04 22:11 Order name: Type And Screen; Complete Time: 00:22 11/04 23:34 Order name: Basic Metabolic Panel EDMT 11/04 23:00 Order name: CT Abd/Pelvis - Without Cont 11/04 23:34 Order name: Basic Metabolic Panel EDMT 11/04 23:34 Order name: Protime (+INR) EDMS 11/04 23:34 Order name: Protime (+INR) EDMS 11/04 23:34 Order name: PTT, Activated Partial Thromb EDMS 11/04 23:34 Order name: PTT, Activated Partial Thromb EDMS 11/04 23:34 Order name: CONS Pharmacy Consult EDMT 11/04 23:34 Order name: NPO EDMS 11/04 23:35 Order name: EKG Electrocardiogram EDMS 11/04 23:35 Order name: EKG Electrocardiogram EDMS 11/04 23:35 Order name: EKG Electrocardiogram EDMS 11/04 23:35 Order name: EKG Electrocardiogram EDMS 11/04 23:35 Order name: EKG Electrocardiogram EDMS 11/04 23:35 Order name: EKG Electrocardiogram EDMS 11/04 23:35 Order name: EKG Electrocardiogram EDMS 11/04 23:35 Order name: EKG Electrocardiogram EDMS 11/04 23:35 Order name: EKG Electrocardiogram EDMS 11/04 22:11 Order name: IV Saline Lock; Complete Time: 22:34 gs 11/04 22:11 Order name: Labs collected and sent; Complete Time: 22:34 11/04 23:35 Order name: EKG Electrocardiogram EDMS Administered Medications: 11/04 22:32 Drug: ProTONIX 40 mg Route: IVP; Site: left antecubital; ed1 23:10 Follow up: Response: No adverse reaction ed1 22:32 Drug: Octreotide 50 mcg Route: IV; Rate: bolus; Site: left antecubital; ed1 23:10 Follow up: Response: No adverse reaction; IV Status: Completed infusion ed1 22:33 Drug: NS 0.9% 1000 ml Route: IV; Rate: 1 bolus; Site: left antecubital; ed1 11/05 00:56 Follow up: IV Status: Infusion continued upon admission ed1 11/04 22:33 Drug: fentaNYL (PF) 50 mcg Route: IVP; Site: left antecubital; ed1 23:09 Follow up: Response: No adverse reaction; Pain is decreased ed1 22:33 Drug: Zofran 4 mg Route: IVP; Site: left antecubital; ed1 23:10 Follow up: Response: No adverse reaction; Nausea is decreased ed1 11/05 00:09 Drug: Octreotide Infusion (50 mcg/hr) - (Octreotide 500 mcg, NS 0.9% 500 ml) Route: IV; ed1 Rate: 50 ml/hr; Site: left hand; 00:55 Follow up: IV Status: Infusion continued upon admission ed1 00:09 Drug: ProTONIX 8 mg/hr Route: IV; Rate: 25 ml/hr; Site: left antecubital; ed1 00:55 Follow up: IV Status: Infusion continued upon admission ed1 Disposition: 11/04/18 23:43 Hospitalization ordered by Jyothi Mccormick for Observation. Preliminary diagnosis is Other gastritis with bleeding. - Bed requested for Telemetry/MedSurg (observation). - Status is Observation. ed1 - Condition is Stable. - Problem is new. - Symptoms have improved. UTI on Admission? No Critical care time excluding procedures: 00:47 Critical care time: Bedside Care: 10 minutes, Consultation: 10 minutes, Family Intervention: 10 minutes. Total time: 30 minutes Signatures: Dispatcher [employer] EDMT Ashely Raya RN RN ed1 Sherry Catalan RN RN lp1 Kareen Manriquez, RN RN Wilbert Bingham MD MD Corrections: (The following items were deleted from the chart) 11/04 23:54 23:43 Hospitalization Ordered by Jyothi Mccormick MD for Observation. Preliminary cg diagnosis is Other gastritis with bleeding. Bed requested for Telemetry/MedSurg (observation). Status is Observation. Condition is Stable. Problem is new. Symptoms have improved. UTI on Admission? No. 11/05 00:55 11/04 23:54 11/04/2018 23:43 Hospitalization Ordered by Jyothi Mccormick MD for ed1 Observation. Preliminary diagnosis is Other gastritis with bleeding. Bed requested for Telemetry/MedSurg (observation). Status is Observation. Condition is Stable. Problem is new. Symptoms have improved. UTI on Admission? No.
[2018-11-04] MEDS: NA CHLORIDE 0.9% 1,000 ML IV SCH (23:45)
[2018-11-04] MEDS: PANTOPRAZOLE INJ 80 MG in NA CHLORIDE 0.9% 250 ML IV SCH (23:45)
[2018-11-04] MEDS ORDERED: NA CHLORIDE 0.9% 250 ML IV SCH (23:45)
[2018-11-05] MEDS ORDERED: PANTOPRAZOLE 40 MG INJ ONE (00:08)
[2018-11-05] MEDS ORDERED: NA CHLORIDE 0.9% 500 ML ONE (00:09)
[2018-11-05] MEDS ORDERED: NA CHLORIDE 0.9% 250 ML ONE (00:09)
[2018-11-05] MEDS ORDERED: OCTREOTIDE ACETATE 100 MCG/ML ONE (00:09)
[2018-11-05 04:38] LABS: Absolute Lymphocytes (CBC) 4.4 K/uL (0.7-4.9); Absolute Monocytes 0.6 K/uL (0.1-1.3); Absolute Neutrophil 3.7 K/uL (1.8-8.0); Basophils % 0.4 % (0-1.3); Eosinophils % 2.1 % (0-4.4); Hematocrit 38.4 % (39.6-49.0); Lymphocytes % 49.2 % (15.3-44.8); MPV 7.9 fL (7.6-11.3); Monocytes % 6.9 % (3.3-12.3); RBC Red Blood Cell Count 4.15 M/uL (4.33-5.43)
[2018-11-05 04:39] LABS: Protime INR 1.07
[2018-11-05 04:50] LABS: BUN Blood Urea Nitrogen 11 mg/dL (7-18); Bicarbonate 32 mmol/L (21-32); Glucose Level 119 mg/dL (74-106); Potassium 4.9 mmol/L (3.5-5.1); Sodium Level 143 mmol/L (136-145)
--- NOTE | 2018-11-05 08:56 | P.HP ---
Certification for Inpatient Patient admitted to: Observation With expected LOS: <2 Midnights Patient will require the following post-hospital care: None Practitioner: I am a practitioner with admitting privileges, knowledge of patient current condition, hospital course, and medical plan of care. Services: Services provided to patient in accordance with Admission requirements found in Title 42 Section 412.3 of the Code of Federal Regulations Patient History Date of Service: 11/05/18 Reason for admission: GI bleeding History of Present Illness: Patient is a 33-year-old gentleman who came into the hospital with gastrointestinal bleeding. Patient states he was having hematemesis. He had multiple bouts of retching. He has never had any episodes like this before. He has a history of multiple psychiatric conditions including anxiety disorder , major depressive disorder, and posttraumatic stress disorder. 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 At this time his hemoglobin is stable and hemodynamically he is stable. He denies any lightheadedness. He will be admitted to the hospital for further evaluation under observation. Allergies No Known Allergies Allergy (Verified 11/05/18 01:05) Home Medications: Buprenorphine HCl/Naloxone HCl [Suboxone 2 mg-0.5 mg Tablet] 1 tab PO TID Duloxetine [Cymbalta *] 20 mg PO DAILY 11/05/18 Gabapentin [Neurontin] 400 mg PO TID 11/05/18 Prazosin HCl 1 mg PO BEDTIME 11/05/18 - Past Medical/Surgical History Has patient received pneumonia vaccine in the past: No Diabetic: No -: Anxiety -: Depression -: PTSD -: Traumatic Brain Injury Past Surgical History: Patient denies surgical history - Family History Mother Medical History: Liver disease Father Family History: Reviewed- Non-Contributory - Social History Smoking Status: Current every day smoker Alcohol use: No Caffeine use: Yes Place of Residence: Home Review of Systems 10-point ROS is otherwise unremarkable Physical Examination - Vital Signs Temperature: 97.9 F Blood Pressure: 103/56 Pulse: 62 Respirations: 15 Pulse Ox (%): 95 - Physical Exam General: Alert, In no apparent distress, Oriented x3 HEENT: Atraumatic, PERRLA, Mucous membr. moist/pink, EOMI, Sclerae nonicteric Neck: Supple, 2+ carotid pulse no bruit, No LAD, Without JVD or thyroid abnormality Respiratory: Clear to auscultation bilaterally, Normal air movement Cardiovascular: Regular rate/rhythm, Normal S1 S2, No murmurs Gastrointestinal: Normal bowel sounds, Soft and benign, Non-distended, No tenderness Musculoskeletal: No clubbing, No swelling, No tenderness Integumentary: No rashes Neurological: Normal gait, Normal speech, Normal strength at 5/5 x4 extr, Normal tone, Sensation intact, Cranial nerves 3-12 intact, Normal affect Lymphatics: No axilla or inguinal lymphadenopathy - Studies Laboratory Data (last 24 hrs) 11/04/18 22:05: WBC 11.0 H, Hgb 13.8, Hct 40.0, Plt Count 327 11/04/18 22:05: Sodium 142, Potassium 3.8, BUN 11, Creatinine 0.90, Glucose 73 L , Total Bilirubin 0.3, AST 16, ALT 23, Alkaline Phosphatase 83, Lipase 129 Assessment & Plan - Problems (Diagnosis) (1) Hematemesis Current Visit: Yes Status: Acute (2) UGIB (upper gastrointestinal bleed) Current Visit: Yes Status: Acute (3) Depression Current Visit: Yes Status: Acute (4) Anxiety disorder Current Visit: Yes Status: Acute (5) TBI (traumatic brain injury) Current Visit: Yes Status: Acute (6) PTSD (post-traumatic stress disorder) Current Visit: Yes Status: Acute - Plan 1. Continue with IV hydration and PPI drip 2. Continue with hemodynamic monitoring 3. Continue with pain control 4. NPO 5. GI consultation 6. Monitor LFTs and lipase along with electrolytes and serial H&H. 7. GI and DVT prophylaxis Discharge Plan: Home Plan to discharge in: 24 Hours - Advance Directives Does patient have a Living Will: No Does patient have a Durable POA for Healthcare: No - Code Status/Comfort Care Code Status Assessed: Yes Code Status: Full Code Critical Care: No Time Spent Managing PTS Care (In Minutes): 45
--- NOTE | 2018-11-05 10:02 | EKG ---
Test Date: 2018-11-05 Test Time: 02:01:14 Patient Care Technician: RT-O MEASUREMENT RESULTS: Intervals: Rate: 68 [place]: 152 QRSD: 80 QT: 410 QTc: 435 [place]: P: 33 NJ: 152 QRS: 26 T: 37 INTERPRETIVE STATEMENTS: Normal sinus rhythm Normal ECG No previous ECG available for comparison Electronically Signed On 11-05-18 09:29:36 CDT by Norberto Hook
[2018-11-05] MEDS: NA CHLORIDE 0.9% 1,000 ML IV SCH (10:03)
[2018-11-05] MEDS: PANTOPRAZOLE INJ 80 MG in NA CHLORIDE 0.9% 250 ML IV SCH (10:03)
--- NOTE | 2018-11-05 10:20 | RAD REPORT ---
EXAM DESCRIPTION: CT ABDOMEN PELVIS WITHOUT IV CONTRAST COMPARISON: CT abdomen pelvis December 25, 2013 Indication: [facility] MAIN TECHNIQUE: Multiple helical axial images were obtained through the abdomen and pelvis without intrav enous contrast. Sagittal and coronal reformatted images are reviewed as well. All CT scans at this facility use dose modulation, iterative reconstruction, and/or weight-based dosi ng when appropriate to reduce radiation dose to as low as reasonably achievable. FINDINGS: Lung bases: Unremarkable. Liver: Homogenous attenuation is demonstrated. Gallbladder/biliary: Gallbladder appears unremarkable. No calcified gallstones. No evidence of biliar y ductal dilatation. Pancreas: Unremarkable. Spleen: Unremarkable. Adrenals: Unremarkable. Kidneys and ureters: No evidence of renal or ureteral stones. No hydronephrosis. Bladder: Unremarkable. Pelvic organs: Unremarkable. Bowel: There is a moderate amount of fecal material in the colon. Nonspecific small amount of dense m aterial in the stomach noted. No evidence of bowel obstruction. No bowel wall thickening. Appendix ap pears unremarkable. Peritoneum: No free air. No significant free fluid. Lymph nodes: Unremarkable. Vasculature: Unremarkable. Soft tissues: Unremarkable. Bones: Unremarkable. IMPRESSION: No obvious acute process within the abdomen or pelvis. Electronically signed by: Brendan Peter MD 11/05/2018 12:13 AM CDT Due to temporary technical issues with the PACS/Fluency reporting system, reports are being signed by the in house radiologist as a courtesy to ensure prompt reporting. The interpreting radiologist is f ully responsible for the content of the report.
[2018-11-05 11:03] LABS: Urine Appearance CLOUDY; Urine Bilirubin NEGATIVE (NEG); Urine Blood 3+ (NEG); Urine Color YELLOW; Urine Glucose NEGATIVE (NEG); Urine Protein NEGATIVE (NEG); Urine Specific Gravity 1.015 (1.005-1.030); Urine Urobilinogen 0.2 mg/dL (0.2-1.0); Urine pH 5.5 (5.0-7.0)
[2018-11-05 11:05] LABS: Urine Microscopic Reflex ORDER UMIC
[2018-11-05 11:15] LABS: Urine Bacteria <20 /HPF (NONE SEEN); Urine Culture Reflex Order REFLEXED; Urine Mucus 2+ /HPF (NONE SEEN)
--- NOTE | 2018-11-05 11:43 | RAD REPORT ---
EXAM DESCRIPTION: RAD - Chest Single View - 11/05/2018 11:34 am CLINICAL HISTORY: SOB Chest pain. COMPARISON: No comparisons FINDINGS: Portable technique limits examination quality. The lungs are grossly clear. The heart is normal in size. No displaced fractures. IMPRESSION: No acute intrathoracic process suspected.
--- NOTE | 2018-11-05 13:16 | P.SSS ---
Patient History Date of Service: 11/05/18 Reason for admission: GI bleeding History of Present Illness: Patient is a 33-year-old gentleman who came into the hospital with gastrointestinal bleeding. Patient states he was having hematemesis. He had multiple bouts of retching. He has never had any episodes like this before. He has a history of multiple psychiatric conditions including anxiety disorder , major depressive disorder, and posttraumatic stress disorder. 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 At this time his hemoglobin is stable and hemodynamically he is stable. He denies any lightheadedness. He will be admitted to the hospital for further evaluation under observation. Allergies No Known Allergies Allergy (Verified 11/05/18 01:05) Home Medications: Buprenorphine HCl/Naloxone HCl [Suboxone 2 mg-0.5 mg Tablet] 1 tab PO TID Duloxetine [Cymbalta *] 20 mg PO DAILY 11/05/18 Gabapentin [Neurontin*] 400 mg PO TID 11/05/18 Pantoprazole Sodium [Protonix] 40 mg PO DAILY #30 tablet. 11/05/18 Prazosin HCl 1 mg PO BEDTIME 11/05/18 - Past Medical/Surgical History Has patient received pneumonia vaccine in the past: No Diabetic: No -: Anxiety -: Depression -: PTSD -: Traumatic Brain Injury - Family History Mother -: Liver disease - Social History Smoking Status: Current every day smoker Alcohol use: No Caffeine use: Yes Place of Residence: Home Review of Systems 10-point ROS is otherwise unremarkable Physical Examination - Vital Signs Temperature: 97.9 F Blood Pressure: 103/56 Pulse: 62 Respirations: 15 Pulse Ox (%): 95 - Physical Exam General: Alert, In no apparent distress HEENT: Atraumatic, PERRLA, Mucous membr. moist/pink, EOMI, Sclerae nonicteric Neck: Supple, 2+ carotid pulse no bruit, No LAD, Without JVD or thyroid abnormality Respiratory: Clear to auscultation bilaterally, Normal air movement Cardiovascular: Regular rate/rhythm, Normal S1 S2 Gastrointestinal: Normal bowel sounds, No tenderness Musculoskeletal: No tenderness Integumentary: No rashes Neurological: Normal gait, Normal speech, Normal strength at 5/5 x4 extr, Normal tone, Normal affect Lymphatics: No axilla or inguinal lymphadenopathy - Studies Laboratory Data (last 24 hrs) 11/04/18 22:05: WBC 11.0 H, Hgb 13.8, Hct 40.0, Plt Count 327 11/04/18 22:05: Sodium 142, Potassium 3.8, BUN 11, Creatinine 0.90, Glucose 73 L , Total Bilirubin 0.3, AST 16, ALT 23, Alkaline Phosphatase 83, Lipase 129 - Diagnosis (Problem(s)) (1) Hematemesis Current Visit: Yes Status: Resolved Qualifiers: Nausea presence: without nausea Qualified Code(s): K92.0 - Hematemesis (2) Anxiety disorder Current Visit: Yes Status: Chronic Qualifiers: Anxiety disorder type: unspecified anxiety disorder Qualified Code(s): F41.9 - Anxiety disorder, unspecified (3) Depression Current Visit: Yes Status: Chronic Qualifiers: Depression Type: unspecified Qualified Code(s): F32.9 - Major depressive disorder, single episode, unspecified (4) PTSD (post-traumatic stress disorder) Current Visit: Yes Status: Chronic Treatment Summary: Hgb remained stable. No further Hematemesis. Vitals remained stable. GI reccs outpt workup. Most likely gastritis. Started on Protonix - Disposition Disposition: ROUTINE DISCHARGE Condition: GOOD Patient Discharge Instructions: Please f.u with GI in 1 to 2 week post discharge. New medication. Protonix 40mg daily for Gastritis Diet: Regular Activity: Ad arlene
== END 2018-11-05 16:17 | disposition home or self-care (01) ==
LOC: ER 21:40 → ERHOLD 23:56 → 2ND 11-05 00:32
PROVIDERS: ADMIT Hospitalist; ATTEND Family Medicine
DX: K92.2 Gastrointestinal hemorrhage, unspecified (principal); F32.9 Major depressive disorder, single episode, unspecified; F41.9 Anxiety disorder, unspecified; F43.12 Post-traumatic stress disorder, chronic; Z87.820 Personal history of traumatic brain injury
CPT/HCPCS: 36415; 71045; 74176; 80048; 80076; 81003; 81015; 83690; 85025; 85610; 85730; 86850; 86900; 86901; 87086; 87088; 93005; 96361; 96365; 96367; 96368; 96375; 99285; C9113; G0378; J2354; J2405; J3010; J7030

== ENCOUNTER 2018-11-10 00:38 | Emergency (ER) | payer OTHER ==
--- OUTSIDE RECORDS SUMMARY | 2018-11-10 00:40 | XMS REPORT ---
:1985 Author Organization [facility] Address [address] [place] [address] [address] [place] [address] Care Team Providers Name Role Phone Unavailable Unavailable Unavailable Problems This patient has no known problems. Allergies, Adverse Reactions, Alerts This patient has no known allergies or adverse reactions. Medications This patient has no known medications.
[2018-11-10] MEDS ORDERED: FAMOTIDINE 20 MG/2 ML VIAL IV ONE (01:25)
[2018-11-10] MEDS ORDERED: NA CHLORIDE 0.9% 1,000 ML ONE (01:25)
[2018-11-10 01:41] LABS: Absolute Lymphocytes (CBC) 2.3 K/uL (0.7-4.9); Absolute Monocytes 0.5 K/uL (0.1-1.3); Absolute Neutrophil 7.1 K/uL (1.8-8.0); Basophils % 0.2 % (0-1.3); Eosinophils % 1.2 % (0-4.4); Hematocrit 41.9 % (39.6-49.0); MPV 7.8 fL (7.6-11.3); Monocytes % 4.5 % (3.3-12.3); RBC Red Blood Cell Count 4.55 M/uL (4.33-5.43)
[2018-11-10 01:42] LABS: Protime INR 1.08
[2018-11-10 01:55] LABS: ALT/SGPT 23 U/L (12-78); AST/SGOT 17 U/L (15-37); Alkaline Phosphatase 91 U/L (45-117); BUN Blood Urea Nitrogen 14 mg/dL (7-18); Bicarbonate 31 mmol/L (21-32); Bilirubin Direct 0.1 mg/dL (0-0.2); Bilirubin Total 0.4 mg/dL (0.2-1.0); Glucose Level 201 mg/dL (74-106); Lipase 86 U/L (73-393); Magnesium 2.1 mg/dL (1.8-2.4); NT PRO-BNP 18 pg/mL (<125); Potassium 3.5 mmol/L (3.5-5.1); Protein, Total 7.5 g/dL (6.4-8.2); Sodium Level 140 mmol/L (136-145); Troponin (Emerg Dept Use Only) < 0.02 ng/mL (0.0-0.045)
--- NOTE | 2018-11-10 03:04 | ER ---
Nurse's Notes [facility] Name: Karl Andujar Age: 33 yrs Sex: Male : 1985 Arrival Date: 11/10/2018 Time: 00:40 Bed 5 Private MD: Diagnosis: Syncope and collapse;Hemoptysis;Tobacco abuse counseling;Tobacco use Presentation: 11/10 00:46 Presenting complaint: Patient states: I have been feeling very weak for the last 2 la1 days, I have been having blood in my vomit (almost exclusively after coughing), had endoscopy on Sunday which was negative for GI bleeding, stated that it may be coming from the lungs and told me to F/U. Transition of care: patient was not received from another setting of care. Onset of symptoms was November 10, 2018. Risk Assessment: Do you want to hurt yourself or someone else? Patient reports no desire to harm self or others. Initial Sepsis Screen: Does the patient meet any 2 criteria? Yes Does the patient have a suspected source of infection? No. Patient's initial sepsis screen is negative. Care prior to arrival: None. 00:46 Method Of Arrival: Ambulatory la1 00:46 Acuity: IRENE 3 la1 Triage Assessment: 01:17 General: Appears in no apparent distress. Behavior is calm, cooperative, drowsy. Pain: ak1 Complains of pain in chest. Historical: - Allergies: 00:48 No Known Allergies; la1 - Home Meds: 00:48 Buspirone Oral 3 times per day [Active]; Cymbalta Oral [Active]; gabapentin 400 mg Oral la1 cap 3 times per day [Active]; hydroxyzine HCl 50 mg Oral tab 1 tab as needed [Active]; prazosin 2 mg Oral cap 1 cap daily [Active]; - PMHx: 00:48 Anxiety; Depression; nightmares; la1 - Immunization history:: Adult Immunizations up to date. - Social history:: Smoking status: Patient uses tobacco products, smokes one pack cigarettes per day. - Ebola Screening: : No symptoms or risks identified at this time. Screenin:17 Abuse screen: Denies threats or abuse. Denies injuries from another. Nutritional ak1 screening: No deficits noted. Tuberculosis screening: No symptoms or risk factors identified. Fall Risk None identified. Assessment: 01:32 Reassessment: Patient appears in no apparent distress at this time. No changes from ak1 previously documented assessment. Patient and/or family updated on plan of care and expected duration. Pain level reassessed. Patient is alert, oriented x 3, equal unlabored respirations, skin warm/dry/pink. 02:03 Reassessment: Patient appears in no apparent distress at this time. No changes from ak1 previously documented assessment. Patient and/or family updated on plan of care and expected duration. Pain level reassessed. Patient is alert, oriented x 3, equal unlabored respirations, skin warm/dry/pink. 03:40 Reassessment: Patient appears in no apparent distress at this time. No changes from ak1 previously documented assessment. Patient and/or family updated on plan of care and expected duration. Pain level reassessed. Patient is alert, oriented x 3, equal unlabored respirations, skin warm/dry/pink. Patient states symptoms have improved. no cough, no vomiting noted while in ER5. . Vital Signs: 00:48 BP 129 / 97; Pulse 103; Resp 16; Temp 97.3; Pulse Ox 98% on R/A; Weight 72.57 kg; la1 Height 5 ft. 7 in. (170.18 cm); 01:31 Pulse 78; Resp 12; Pulse Ox 98% on R/A; ak1 02:03 BP 113 / 84; Pulse 82; Resp 12; Temp 98.1; Pulse Ox 98% on R/A; ak1 03:29 BP 114 / 88; Pulse 77; Resp 14; Pulse Ox 96% on R/A; ak1 00:48 Body Mass Index 25.06 (72.57 kg, 170.18 cm) la1 ED Course: 00:40 Patient arrived in ED. mr 00:48 Triage completed. la1 00:49 Arm band placed on right wrist. la1 00:55 Carlton Hernandez MD is Attending Physician. [facility] 01:02 Jocelyn Reyes, RN is Primary Nurse. ak1 01:16 Initial lab(s) drawn, by or, sent to lab. EKG done, by ED staff, reviewed by Carlton Hernandez MD X-ray(s) taken. Inserted saline lock: 20 gauge in right antecubital area, using aseptic technique. Blood collected. 01:18 Patient has correct armband on for positive identification. Bed in low position. Call ak1 light in reach. Side rails up X 1. Side rails up X2. Adult w/ patient. air sampling and monitoring on. Pulse ox on. NIBP on. 01:26 XRAY Chest (1 view) In Process Unspecified. EDMS 02:08 CT Head Brain wo Cont In Process Unspecified. EDMS 02:20 CT Chest For PE Angio In Process Unspecified. EDMS 03:39 No provider procedures requiring assistance completed. IV discontinued, intact, ak1 bleeding controlled, No redness/swelling at site. Pressure dressing applied. Administered Medications: 01:15 Drug: Pepcid 20 mg Route: IVP; Site: right antecubital; ak1 03:00 Follow up: Response: No adverse reaction ak1 01:16 Drug: NS 0.9% 1000 ml Route: IV; Rate: 1 bolus; Site: right antecubital; ak1 03:00 Follow up: IV Status: Completed infusion; IV Intake: 1000ml ak1 Intake: 03:00 IV: 1000ml; Total: 1000ml. ak1 Outcome: 03:04 Discharge ordered by . dontae 03:40 Discharged to home ambulatory, with family. ak1 03:40 Condition: good 03:40 Discharge instructions given to patient, family, Instructed on discharge instructions, follow up and referral plans. medication usage, Demonstrated understanding of instructions, follow-up care, medications, Prescriptions given X 1. 03:41 Patient left the ED. ak1 Signatures: Dispatcher [employer] Carlton Cobb MD MD cha Rivera, Mary mr Attema, Lee, RN RN Jocelyn Garcia RN RN ak1
--- NOTE | 2018-11-10 03:04 | EDPHYS ---
Physician Documentation [facility] Name: Karl Andujar Age: 33 yrs Sex: Male : 1985 Arrival Date: 11/10/2018 Time: 00:40 Bed 5 Private MD: ED Physician Carlton Hernandez HPI: 11/10 01:05 This 33 yrs old Male presents to ER via Ambulatory with complaints of Passed dontae Out Prior To Arrival, Weakness, Vomiting. 01:05 The patient has experienced near-syncope. Onset: The symptoms/episode began/occurred dontae just prior to arrival. Duration: This was a single episode, that lasted an unknown period of time. Context: the episode(s) was witnessed, by family. Associated injury: The patient did not suffer any apparent associated injury. Associated signs and symptoms: Pertinent positives: shortness of breath. Current symptoms: Currently, the patient is not experiencing any symptoms. The patient has experienced similar episodes in the past, a few times. Historical: - Allergies: 00:48 No Known Allergies; la1 - Home Meds: 00:48 Buspirone Oral 3 times per day [Active]; Cymbalta Oral [Active]; gabapentin 400 mg Oral la1 cap 3 times per day [Active]; hydroxyzine HCl 50 mg Oral tab 1 tab as needed [Active]; prazosin 2 mg Oral cap 1 cap daily [Active]; - PMHx: 00:48 Anxiety; Depression; nightmares; la1 - Immunization history:: Adult Immunizations up to date. - Social history:: Smoking status: Patient uses tobacco products, smokes one pack cigarettes per day. - Ebola Screening: : No symptoms or risks identified at this time. ROS: 01:07 Constitutional: Negative for fever, chills, and weight loss, Eyes: Negative for injury, dontae pain, redness, and discharge, ENT: Negative for injury, pain, and discharge, Neck: Negative for injury, pain, and swelling, Cardiovascular: Negative for chest pain, palpitations, and edema, Abdomen/GI: Negative for abdominal pain, nausea, vomiting, diarrhea, and constipation, Back: Negative for injury and pain, : Negative for injury, bleeding, discharge, and swelling, MS/Extremity: Negative for injury and deformity, Skin: Negative for injury, rash, and discoloration, Neuro: Negative for headache, weakness, numbness, tingling, and seizure, Psych: Negative for depression, anxiety, suicide ideation, homicidal ideation, and hallucinations, Allergy/Immunology: Negative for hives, rash, and allergies, Endocrine: Negative for neck swelling, polydipsia, polyuria, polyphagia, and marked weight changes, Hematologic/Lymphatic: Negative for swollen nodes, abnormal bleeding, and unusual bruising. : Respiratory: Positive for cough, hemoptysis. : Neuro: Positive for near syncope. Exam: : Constitutional: This is a well developed, well nourished patient who is awake, alert, dontae and in no acute distress. Head/Face: Normocephalic, atraumatic. Eyes: Pupils equal round and reactive to light, extra-ocular motions intact. Lids and lashes normal. Conjunctiva and sclera are non-icteric and not injected. Cornea within normal limits. Periorbital areas with no swelling, redness, or edema. ENT: Nares patent. No nasal discharge, no septal abnormalities noted. Tympanic membranes are normal and external auditory canals are clear. Oropharynx with no redness, swelling, or masses, exudates, or evidence of obstruction, uvula midline. Mucous membranes moist. Neck: Trachea midline, no thyromegaly or masses palpated, and no cervical lymphadenopathy. Supple, full range of motion without nuchal rigidity, or vertebral point tenderness. No Meningismus. Chest/axilla: Normal chest wall appearance and motion. Nontender with no deformity. No lesions are appreciated. Cardiovascular: Regular rate and rhythm with a normal S1 and S2. No gallops, murmurs, or rubs. Normal PMI, no JVD. No pulse deficits. Respiratory: Lungs have equal breath sounds bilaterally, clear to auscultation and percussion. No rales, rhonchi or wheezes noted. No increased work of breathing, no retractions or nasal flaring. Abdomen/GI: Soft, non-tender, with normal bowel sounds. No distension or tympany. No guarding or rebound. No evidence of tenderness throughout. Back: No spinal tenderness. No costovertebral tenderness. Full range of motion. Male : Normal genitalia with no discharge or lesions. Skin: Warm, dry with normal turgor. Normal color with no rashes, no lesions, and no evidence of cellulitis. MS/ Extremity: Pulses equal, no cyanosis. Neurovascular intact. Full, normal range of motion. Neuro: Awake and alert, GCS 15, oriented to person, place, time, and situation. Cranial nerves II-XII grossly intact. Motor strength 5/5 in all extremities. Sensory grossly intact. Cerebellar exam normal. Normal gait. Psych: Awake, alert, with orientation to person, place and time. Behavior, mood, and affect are within normal limits. Vital Signs: 00:48 BP 129 / 97; Pulse 103; Resp 16; Temp 97.3; Pulse Ox 98% on R/A; Weight 72.57 kg; la1 Height 5 ft. 7 in. (170.18 cm); 01:31 Pulse 78; Resp 12; Pulse Ox 98% on R/A; ak1 02:03 BP 113 / 84; Pulse 82; Resp 12; Temp 98.1; Pulse Ox 98% on R/A; ak1 03:29 BP 114 / 88; Pulse 77; Resp 14; Pulse Ox 96% on R/A; ak1 00:48 Body Mass Index 25.06 (72.57 kg, 170.18 cm) la1 MDM: 00:55 Patient medically screened. [facility] 01:08 Data reviewed: vital signs, nurses notes, lab test result(s), EKG, radiologic studies, [facility] CT scan, plain films. 11/10 01:05 Order name: Basic Metabolic Panel; Complete Time: 03:03 [facility] 11/10 01:05 Order name: CBC with Diff; Complete Time: 02:03 [facility] 11/10 01:05 Order name: LFT's; Complete Time: 03:03 [facility] 11/10 01:05 Order name: Magnesium; Complete Time: 03:03 [facility] 11/10 01:05 Order name: NT PRO-BNP; Complete Time: 03:03 [facility] 11/10 01:05 Order name: PT-INR; Complete Time: 02:03 [facility] 11/10 01:05 Order name: Troponin (emerg Dept Use Only); Complete Time: 03:03 [facility] 11/10 01:05 Order name: XRAY Chest (1 view) [facility] 11/10 01:05 Order name: Lipase; Complete Time: 03:03 [facility] 11/10 01:05 Order name: CT Chest For PE Angio [facility] 11/10 01:05 Order name: UDS; Complete Time: 03:30 [facility] 11/10 01:09 Order name: CT Head Brain wo Cont [facility] 11/10 01:05 Order name: EKG; Complete Time: : [facility] 11/10 01:05 Order name: Cardiac monitoring; Complete Time: 01: [facility] 11/10 01:05 Order name: EKG - Nurse/Tech; Complete Time: 01:19 [facility] 11/10 01:05 Order name: IV Saline Lock; Complete Time: : [facility] 11/10 01:05 Order name: Labs collected and sent; Complete Time: : [facility] 11/10 01:05 Order name: O2 Per Protocol; Complete Time: : [facility] 11/10 01:05 Order name: O2 Sat Monitoring; Complete Time: : [facility] 11/10 01:05 Order name: Urine Dipstick-Ancillary (obtain specimen); Complete Time: 03:00 [facility] Administered Medications: 01:15 Drug: Pepcid 20 mg Route: IVP; Site: right antecubital; ak1 03:00 Follow up: Response: No adverse reaction ak 01:16 Drug: NS 0.9% 1000 ml Route: IV; Rate: 1 bolus; Site: right antecubital; ak1 03:00 Follow up: IV Status: Completed infusion; IV Intake: 1000ml ak1 Disposition: 11/10/18 03:04 Discharged to Home. Impression: Syncope and collapse, Hemoptysis, Tobacco abuse counseling, Tobacco use. - Condition is Stable. - Discharge Instructions: Hemoptysis, Near-Syncope, Steps to Quit Smoking, Smoking Hazards, Near-Syncope, Royc-ey-Wjly, Syncope, Anhp-jj-Wced, Steps to Quit Smoking, Qkaf-br-Ipcg, Weakness, Nxqg-yi-Bzvr, Hemoptysis, Cvgq-ki-Fjik. - Prescriptions for Pepcid 20 mg Oral Tablet - take 1 tablet by ORAL route every 12 hours for 10 days; 20 tablet. - Medication Reconciliation Form, Thank You Letter, Antibiotic Education, Prescription Opioid Use form. - Follow up: Private Physician; When: 2 - 3 days; Reason: Recheck today's complaints, Continuance of care, Re-evaluation by your physician. - Problem is new. - Symptoms have improved. Signatures: Dispatcher [employer] EDCarlton Cummins MD MD cha Attema, Lee, RN RN laJocelyn Bobby, RN RN ak1 Corrections: (The following items were deleted from the chart) 03:41 03:04 11/10/2018 03:04 Discharged to Home. Impression: Syncope and collapse; ak1 Hemoptysis; Tobacco abuse counseling; Tobacco use. Condition is Stable. Discharge Instructions: Hemoptysis, Near-Syncope, Steps to Quit Smoking, Smoking Hazards, Near-Syncope, Bazy-dz-Uxmm, Syncope, Biyv-vh-Dihr, Steps to Quit Smoking, Fmcc-qt-Qjqe, Weakness, Tceo-tq-Eryh, Hemoptysis, Qydy-mj-Ffyg. Prescriptions for Pepcid 20 mg Oral Tablet - take 1 tablet by ORAL route every 12 hours for 10 days; 20 tablet. and Forms are Medication Reconciliation Form, Thank You Letter, Antibiotic Education, Prescription Opioid Use. Follow up: Private Physician; When: 2 - 3 days; Reason: Recheck today's complaints, Continuance of care, Re-evaluation by your physician. Problem is new. Symptoms have improved. dontae
[2018-11-10 03:11] LABS: Barbiturates NEGATIVE (NEGATIVE); Benzodiazepines NEGATIVE (NEGATIVE); Cocaine NEGATIVE (NEGATIVE); METHAMPHETAM NEGATIVE (NEGATIVE); Methadone NEGATIVE (NEGATIVE); Opiates NEGATIVE (NEGATIVE); Phencyclidine NEGATIVE (NEGATIVE); THC Cannibis NEGATIVE (NEGATIVE)
--- NOTE | 2018-11-10 07:48 | EKG ---
Test Date: 2018-11-10 Test Time: 01:09:12 [place]: AG3 MEASUREMENT RESULTS: Intervals: Rate: 95 TN: 142 QRSD: 86 QT: 358 QTc: 449 Keller: P: 49 TN: 142 QRS: 23 T: 9 INTERPRETIVE STATEMENTS: Normal sinus rhythm Right atrial enlargement Borderline ECG Compared to ECG 11/05/2018 02:01:14 Atrial abnormality now present Electronically Signed On 11-10-18 07:46:35 CDT by Norberto Hook
--- NOTE | 2018-11-10 11:15 | RAD REPORT ---
EXAM DESCRIPTION: RAD - Chest Single View - 11/10/2018 1:28 am CLINICAL HISTORY: COUGH Chest pain. COMPARISON: Chest Single View dated 11/05/2018 FINDINGS: Portable technique limits examination quality. The lungs are grossly clear. The heart is normal in size. No displaced fractures. IMPRESSION: No acute intrathoracic process suspected.
--- NOTE | 2018-11-11 11:23 | RAD REPORT ---
EXAM DESCRIPTION: CT Head Without Intravenous Contrast CLINICAL HISTORY: The patient is 33 years old and is Male; Weakness;Syncope TECHNIQUE: Axial computed tomography images of the head/brain without intravenous contrast. Sagitt al and coronal reformatted images were created and reviewed. This CT exam was performed using one o r more of the following dose reduction techniques: automated exposure control, adjustment of the mA and/or kV according to patient size, and/or use of iterative reconstruction technique. COMPARISON: No relevant prior studies available. FINDINGS: BRAIN: Unremarkable. The ortega-white matter differentiation is preserved . No hemorrhag e. No significant white matter disease. No edema. No extra-axial fluid collections. VENTRICLES: Unremarkable. No ventriculomegaly. BONES/JOINTS: No acute fracture. SOFT TISSUES: Unremarkable. SINUSES: Unremarkable as visualized. No acute sinusitis. MASTOID AIR CELLS: Unremarkable as visualized. No mastoid effusion. IMPRESSION: No acute intracranial findings. Electronically signed by: Berenice Hernandez MD 11/10/2018 2:19 AM CDT Due to temporary technical issues with the PACS/Fluency reporting system, reports are being signed by the in house radiologist as a courtesy to ensure prompt reporting. The interpreting radiologist is f ully responsible for the content of the report.
--- NOTE | 2018-11-11 11:24 | RAD REPORT ---
EXAM DESCRIPTION: CT Angiography Chest With Intravenous Contrast CLINICAL HISTORY: The patient is 33 years old and is Male; Cough;Hemoptysis TECHNIQUE: Axial computed tomographic angiography images of the chest with intravenous contrast usin g pulmonary embolism protocol. Sagittal and coronal reformatted images were created and reviewed. This CT exam was performed using one or more of the following dose reduction techniques: automated exposure control, adjustment of the mA and/or kV according to patient size, and/or use of iterative reconstruction technique. MIP reconstructed images were created and reviewed. COMPARISON: No relevant prior studies available. FINDINGS: ARTIFACTS: The exam is suboptimal secondary to motion artifact. PULMONARY ARTERIES: There are no obvious filling defects identified within the pulmonary arterie s to suggest pulmonary embolism. AORTA: No acute findings. No thoracic aortic aneurysm. LUNGS: Unremarkable. No mass. No consolidation. PLEURAL SPACE: Unremarkable. No significant effusion. No pneumothorax. HEART: Unremarkable. No cardiomegaly. No significant pericardial effusion. No evidence of RV dysfunction. BONES/JOINTS: No acute fracture. No dislocation. SOFT TISSUES: Unremarkable. LYMPH NODES: Unremarkable. No enlarged lymph nodes. IMPRESSION: No evidence of pulmonary embolism. Electronically signed by: Berenice Hernandez MD 11/10/2018 2:25 AM CDT Due to temporary technical issues with the PACS/Fluency reporting system, reports are being signed by the in house radiologist as a courtesy to ensure prompt reporting. The interpreting radiologist is f ully responsible for the content of the report.
== END 2018-11-10 03:41 | disposition home or self-care (01) ==
LOC: ER 00:38
DX: R04.2 Hemoptysis (principal); F41.9 Anxiety disorder, unspecified; F32.9 Major depressive disorder, single episode, unspecified; Z71.6 Tobacco abuse counseling; Z72.0 Tobacco use
CPT/HCPCS: 36415; 70450; 71045; 71275; 80048; 80076; 80307; 83690; 83735; 83880; 84484; 85025; 85610; 93005; J7030; Q9967

== ENCOUNTER 2018-11-12 04:58 | Emergency (ER) | payer OTHER ==
--- OUTSIDE RECORDS SUMMARY | 2018-11-12 05:00 | XMS REPORT ---
:1985 Author Organization [facility] Address [address] [place] [address] [address] [place] [address] Care Team Providers Name Role Phone Unavailable Unavailable Unavailable Problems This patient has no known problems. Allergies, Adverse Reactions, Alerts This patient has no known allergies or adverse reactions. Medications This patient has no known medications.
[2018-11-12] MEDS ORDERED: MAGNE/ALUM HYDROXD 30 ML UCUP ONE (06:29)
[2018-11-12] MEDS ORDERED: ONDANSETRON 4 MG (ODT) TAB ONE (06:29)
[2018-11-12] MEDS ORDERED: PROMETHAZINE 25 MG/ML VIAL ONE (06:29)
[2018-11-12] MEDS ORDERED: LIDOCAINE VISCOUS 2% SOLN 15 ML UDC ONE (06:29)
[2018-11-12] MEDS ORDERED: LORAZEPAM 0.5 MG TABLET ONE (06:29)
--- NOTE | 2018-11-12 07:48 | ER ---
Nurse's Notes [facility] Name: Karl Andujar Age: 33 yrs Sex: Male : 1985 Arrival Date: 11/12/2018 Time: 05:02 Bed 6 Private MD: Diagnosis: Cough;Hemoptysis;Gastro-esophageal reflux disease Presentation: 11/12 05:06 Presenting complaint: Patient states: Coughing up blood x 1 week; states hospitalized lp1 last week for same symptoms, has not had follow up scope yet; States pain to chest related to persistent coughing. Transition of care: patient was not received from another setting of care. Onset of symptoms was November 12, 2018. Risk Assessment: Do you want to hurt yourself or someone else? Patient reports no desire to harm self or others. Initial Sepsis Screen: Does the patient meet any 2 criteria? HR > 90 bpm. Does the patient have a suspected source of infection? No. Patient's initial sepsis screen is negative. Care prior to arrival: None. 05:06 Method Of Arrival: Wheelchair lp1 05:06 Acuity: IRENE 3 lp1 Historical: - Allergies: 05:09 No Known Allergies; lp1 - Home Meds: 05:09 Suboxone sublingual sublingual [Active]; prazosin 2 mg Oral cap 1 cap daily [Active]; lp1 hydroxyzine HCl 50 mg Oral tab 1 tab as needed [Active]; Buspirone Oral 3 times per day [Active]; gabapentin 400 mg Oral cap 3 times per day [Active]; Cymbalta Oral [Active]; - PMHx: 05:09 Anxiety; Depression; nightmares; lp1 - PSHx: 05:09 lasik surgery; lp1 - Immunization history:: Adult Immunizations up to date. - Social history:: Smoking status: Patient uses tobacco products, smokes one-half pack cigarettes per day. - Ebola Screening: : No symptoms or risks identified at this time. Screenin:09 Abuse screen: Denies threats or abuse. Denies injuries from another. Nutritional lp1 screening: No deficits noted. Tuberculosis screening: No symptoms or risk factors identified. 07:02 Fall Risk None identified. tl2 Assessment: 05:20 General: Appears in no apparent distress. uncomfortable, Behavior is agitated, anxious. tl2 Pain: Complains of pain in chest. Neuro: Level of Consciousness is awake, alert, obeys commands, Oriented to person, place, time, situation. Cardiovascular: Patient's skin is warm and dry. Respiratory: Reports cough that is productive, hacking, persistent coughing up blood Airway is patent Respiratory effort is even, unlabored, Respiratory pattern is regular, symmetrical. GI: No signs and/or symptoms were reported involving the gastrointestinal system. : No signs and/or symptoms were reported regarding the genitourinary system. Derm: Skin is pale. 06:24 Reassessment: Patient appears in no apparent distress at this time. Patient and/or tl2 family updated on plan of care and expected duration. Pain level reassessed. Patient is alert, oriented x 3, equal unlabored respirations, skin warm/dry/pink. gave patient pillow and blanket, turned out lights. instructed pt to relax after medication administration. 08:36 Reassessment: Patient appears in no apparent distress at this time. Pt drowsy, will sv wait for pt to wake up more to discharge. 09:13 Reassessment: Pt is resting at this time, eyes closed. Respirations remain even and ss unlabored. Pt is difficult to arouse, but is arousable with painful stimuli. Awaiting for patient become awake and alert prior to discharge. Side rails up x2, call light remains within reach. 10:00 Reassessment: Patient appears in no apparent distress at this time. Patient is alert, sv oriented x 3, equal unlabored respirations, skin warm/dry/pink. pt appears to be sleeping at this time with eyes closed. Call byrd within reach, side rails up x 2. 10:48 Reassessment: Pt states that his is on the way to pick him up. ss 11:51 Reassessment: Patient appears in no apparent distress at this time. Patient and/or ss family updated on plan of care and expected duration. Pain level reassessed. Patient is alert, oriented x 3, equal unlabored respirations, skin warm/dry/pink. Patient denies pain at this time. Patient states feeling better. Patient states symptoms have improved. Vital Signs: 05:07 BP 145 / 65; Pulse 113; Resp 18; Temp 98.6(O); Pulse Ox 98% on R/A; Weight 72.57 kg; lp1 Height 6 ft. 3 in. (190.50 cm); Pain 9/10; 05:20 BP 104 / 71; Pulse 92; Resp 20; Pulse Ox 97% on R/A; tl2 06:24 BP 106 / 75; Pulse 89; Resp 16; Pulse Ox 96% on R/A; tl2 07:11 BP 106 / 64; Pulse 86; Resp 16; Pulse Ox 96% ; sv 08:00 BP 100 / 68; Pulse 80; Resp 16; Pulse Ox 97% ; sv 09:00 BP 101 / 68; Pulse 74; Resp 16; Pulse Ox 98% ; sv 05:07 Body Mass Index 20.00 (72.57 kg, 190.50 cm) lp1 ED Course: 05:02 Patient arrived in ED. aa1 05:07 Triage completed. lp1 05:08 Arm band placed on left wrist. lp1 05:10 Patient has correct armband on for positive identification. Placed in gown. lp1 06:02 [facility]. snw 06:02 Elton Graham MD is Attending Physician. snw 07:07 Yesenia Alston RN is Primary Nurse. sv 07:09 Report received from Tamara DELANEY. sv 11:51 No provider procedures requiring assistance completed. Patient did not have IV access ss during this emergency room visit. Administered Medications: 06:23 Drug: Phenergan 25 mg Route: IM; Site: right gluteus; tl2 07:12 Follow up: Response: No adverse reaction; Marked relief of symptoms sv 06:24 Drug: GI Cocktail without - (Maalox Suspension 30 ml, Lidocaine Liquid 2 % 15 tl2 ml) Route: PO; 07:12 Follow up: Response: No adverse reaction; Marked relief of symptoms sv 06:24 Drug: Zofran 4 mg Route: PO; tl2 07:12 Follow up: Response: No adverse reaction; Marked relief of symptoms sv 06:24 Drug: Ativan 0.5 mg Route: PO; tl2 07:12 Follow up: Response: No adverse reaction sv Outcome: 07:47 Discharge ordered by . snw 11:51 Discharged to home ambulatory. ss 11:51 Condition: good 11:51 Discharge instructions given to patient, Instructed on discharge instructions, follow up and referral plans. medication usage, Demonstrated understanding of instructions, follow-up care, medications, Prescriptions given X 1. 11:53 Patient left the ED. Signatures: Yesenia Alston, RN RN Marilee Monge RN RN aa1 Cielo Wilson, DIRECTOR OF SERVICES-C DIRECTOR OF SERVICES-Csnw Jacquie Prieto RN RN ss Sherry Catalan RN RN lp1 Tamara Negron RN RN tl2
--- NOTE | 2018-11-12 07:48 | EDPHYS ---
Physician Documentation [facility] Name: Karl Andujar Age: 33 yrs Sex: Male : 1985 Arrival Date: 11/12/2018 Time: 05:02 Bed 6 Private MD: ED Physician Elton Graham HPI: 11/12 06:37 This 33 yrs old Male presents to ER via Wheelchair with complaints of snw coughing up blood. 06:37 The patient or guardian reports cough, described as moderate. Onset: The snw symptoms/episode began/occurred 1 week(s) ago, and became persistent. Modifying factors: The symptoms are alleviated by nothing. the symptoms are aggravated by cough. Associated signs and symptoms: Pertinent positives: vomiting. Severity of symptoms: At their worst the symptoms were mild moderate in the emergency department the symptoms are unchanged. The patient has experienced similar episodes in the past. The patient has been recently seen by a physician: The patient has been recently seen at the [facility] Emergency Department, The patient has been recently been admitted at [facility], CT PE and CXR and labs performed 11/10/18 - negative. Historical: - Allergies: 05:09 No Known Allergies; lp1 - Home Meds: 05:09 Suboxone sublingual sublingual [Active]; prazosin 2 mg Oral cap 1 cap daily [Active]; lp1 hydroxyzine HCl 50 mg Oral tab 1 tab as needed [Active]; Buspirone Oral 3 times per day [Active]; gabapentin 400 mg Oral cap 3 times per day [Active]; Cymbalta Oral [Active]; - PMHx: 05:09 Anxiety; Depression; nightmares; lp1 - PSHx: 05:09 lasik surgery; lp1 - Immunization history:: Adult Immunizations up to date. - Social history:: Smoking status: Patient uses tobacco products, smokes one-half pack cigarettes per day. - Ebola Screening: : No symptoms or risks identified at this time. ROS: 06:37 Eyes: Negative for injury, pain, redness, and discharge. snw 06:37 Neck: Negative for injury, pain, and swelling, Cardiovascular: Negative for chest pain, palpitations, and edema. 06:37 Back: Negative for injury and pain, : Negative for injury, bleeding, discharge, and swelling, MS/Extremity: Negative for injury and deformity, Skin: Negative for injury, rash, and discoloration, Neuro: Negative for headache, weakness, numbness, tingling, and seizure. 06:37 Constitutional: Positive for body aches, malaise. 06:37 ENT: Positive for left mandibular swelling. 06:37 Respiratory: Positive for cough, blood. 06:37 Abdomen/GI: Positive for nausea and vomiting. Exam: 06:37 Head/Face: Normocephalic, atraumatic. Eyes: Pupils equal round and reactive to light, snw extra-ocular motions intact. Lids and lashes normal. Conjunctiva and sclera are non-icteric and not injected. Cornea within normal limits. Periorbital areas with no swelling, redness, or edema. 06:37 Neck: Trachea midline, no thyromegaly or masses palpated, and no cervical lymphadenopathy. Supple, full range of motion without nuchal rigidity, or vertebral point tenderness. No Meningismus. Chest/axilla: Normal chest wall appearance and motion. Nontender with no deformity. No lesions are appreciated. Cardiovascular: Regular rate and rhythm with a normal S1 and S2. No gallops, murmurs, or rubs. Normal PMI, no JVD. No pulse deficits. 06:37 Back: No spinal tenderness. No costovertebral tenderness. Full range of motion. Skin: Warm, dry with normal turgor. Normal color with no rashes, no lesions, and no evidence of cellulitis. MS/ Extremity: Pulses equal, no cyanosis. Neurovascular intact. Full, normal range of motion. Neuro: Awake and alert, GCS 15, oriented to person, place, time, and situation. Cranial nerves II-XII grossly intact. Motor strength 5/5 in all extremities. Sensory grossly intact. Cerebellar exam normal. Normal gait. 06:37 Constitutional: The patient appears awake, anxious. 06:37 ENT: Mouth: Oral mucosa: moist, Dental exam: dental caries, that is moderate, that is severe, diffusely, Voice: is normal. 06:37 Respiratory: the patient does not display signs of respiratory distress, Respirations: normal, Breath sounds: are clear throughout, bronchitic cough. 06:37 Abdomen/GI: Inspection: abdomen appears normal, Bowel sounds: hyperactive, Palpation: abdomen is soft and non-tender. 06:37 Psych: Behavior/mood is anxious. Vital Signs: 05:07 BP 145 / 65; Pulse 113; Resp 18; Temp 98.6(O); Pulse Ox 98% on R/A; Weight 72.57 kg; lp1 Height 6 ft. 3 in. (190.50 cm); Pain 9/10; 05:20 BP 104 / 71; Pulse 92; Resp 20; Pulse Ox 97% on R/A; tl2 06:24 BP 106 / 75; Pulse 89; Resp 16; Pulse Ox 96% on R/A; tl2 07:11 BP 106 / 64; Pulse 86; Resp 16; Pulse Ox 96% ; sv 08:00 BP 100 / 68; Pulse 80; Resp 16; Pulse Ox 97% ; sv 09:00 BP 101 / 68; Pulse 74; Resp 16; Pulse Ox 98% ; sv 05:07 Body Mass Index 20.00 (72.57 kg, 190.50 cm) lp1 MDM: 06:04 Patient medically screened. snw 07:57 Data reviewed: vital signs, nurses notes. Data interpreted: Pulse oximetry: on room air snw is 96 %. Interpretation: acceptable. Counseling: I had a detailed discussion with the patient and/or guardian regarding: the historical points, exam findings, and any diagnostic results supporting the discharge/admit diagnosis, the need for outpatient follow up, to return to the emergency department if symptoms worsen or persist or if there are any questions or concerns that arise at home, smoking cessation. Special discussion: Based on the history and exam findings, there is no indication for further emergent testing or inpatient evaluation. I discussed with the patient/guardian the need to see the land development manager for further evaluation of the symptoms. I discussed with the patient/guardian the need to see the sewing demonstrator for further evaluation of the symptoms. 08:31 Response to treatment: the patient's symptoms have markedly improved after treatment, snw pt sleeping supine in no distress. Administered Medications: 06:23 Drug: Phenergan 25 mg Route: IM; Site: right gluteus; tl2 07:12 Follow up: Response: No adverse reaction; Marked relief of symptoms sv 06:24 Drug: GI Cocktail without - (Maalox Suspension 30 ml, Lidocaine Liquid 2 % 15 tl2 ml) Route: PO; 07:12 Follow up: Response: No adverse reaction; Marked relief of symptoms sv 06:24 Drug: Zofran 4 mg Route: PO; tl2 07:12 Follow up: Response: No adverse reaction; Marked relief of symptoms sv 06:24 Drug: Ativan 0.5 mg Route: PO; tl2 07:12 Follow up: Response: No adverse reaction sv Disposition: 11/12/18 07:47 Discharged to Home. Impression: Cough, Hemoptysis, Gastro-esophageal reflux disease. - Condition is Stable. - Discharge Instructions: Gastroesophageal Reflux Disease, Adult, Steps to Quit Smoking, Smoking Hazards, Cool Mist Vaporizer, Cough, Adult, [id number], Cough, Adult. - Prescriptions for Nexium 20 mg Oral Capsule - take 1 capsule by ORAL route once daily; 20 capsule. - Work release form, Medication Reconciliation Form, Thank You Letter, Antibiotic Education, Prescription Opioid Use form. - Follow up: Private Physician; When: 1 - 2 days; Reason: Recheck today's complaints, Continuance of care, Re-evaluation by your physician. Follow up: Emergency Department; When: As needed; Reason: Worsening of condition. Signatures: Cielo Wilson, CERAMICS TECHNICIAN-C CERAMICS TECHNICIAN-Csnw Jacquie Prieto RN RN ss Sherry Catalan RN RN lp1 Tamara Negron, RHETT RN tl2 Yesenia Alston RN sv Corrections: (The following items were deleted from the chart) 11:53 07:47 11/12/2018 07:47 Discharged to Home. Impression: Cough; Hemoptysis; ss Gastro-esophageal reflux disease. Condition is Stable. Forms are Medication Reconciliation Form, Thank You Letter, Antibiotic Education, Prescription Opioid Use. Follow up: Private Physician; When: 1 - 2 days; Reason: Recheck today's complaints, Continuance of care, Re-evaluation by your physician. Follow up: Emergency Department; When: As needed; Reason: Worsening of condition. snw
== END 2018-11-12 11:53 | disposition home or self-care (01) ==
LOC: ER 04:58
DX: R04.2 Hemoptysis (principal); K21.9 Gastro-esophageal reflux disease without esophagitis; F41.9 Anxiety disorder, unspecified; F32.9 Major depressive disorder, single episode, unspecified; F17.210 Nicotine dependence, cigarettes, uncomplicated
CPT/HCPCS: J2550

== ENCOUNTER 2018-12-12 03:54 | Emergency (ER) | payer OTHER ==
[2018-12-12 04:36] LABS: Absolute Lymphocytes (CBC) 4.4 K/uL (0.7-4.9); Absolute Monocytes 0.8 K/uL (0.1-1.3); Absolute Neutrophil 3.7 K/uL (1.8-8.0); Basophils % 0.5 % (0-1.3); Eosinophils % 3.3 % (0-4.4); Hematocrit 37.9 % (39.6-49.0); Lymphocytes % 46.9 % (15.3-44.8); MPV 7.5 fL (7.6-11.3); Monocytes % 8.9 % (3.3-12.3); RBC Red Blood Cell Count 4.15 M/uL (4.33-5.43)
[2018-12-12 04:43] LABS: Protime INR 1.02
[2018-12-12] MEDS ORDERED: BENZONATATE 100 MG CAP PO ONE (04:48)
[2018-12-12 04:53] LABS: BUN Blood Urea Nitrogen 14 mg/dL (7-18); Bicarbonate 27 mmol/L (21-32); Glucose Level 122 mg/dL (74-106); Potassium 3.8 mmol/L (3.5-5.1); Sodium Level 138 mmol/L (136-145)
[2018-12-12] MEDS ORDERED: FENTANYL CITR 100 MCG/2 ML ONE (05:32)
--- NOTE | 2018-12-12 06:32 | ER ---
Nurse's Notes [facility] Name: Karl Andujar Age: 33 yrs Sex: Male : 1985 Arrival Date: 12/12/2018 Time: 03:55 Bed 6 Private MD: Diagnosis: Hemoptysis Presentation: 12/12 04:08 Presenting complaint: Patient states: Began vomiting blood about an hour ago; Hx of lp1 symptoms, bronch[facility] performed [facility] and no results; Patient dry heaving during triage. Transition of care: patient was not received from another setting of care. Onset of symptoms was December 12, 2018 at 03:00. Risk Assessment: Do you want to hurt yourself or someone else? Patient reports no desire to harm self or others. Initial Sepsis Screen: Does the patient meet any 2 criteria? No. Patient's initial sepsis screen is negative. Does the patient have a suspected source of infection? No. Patient's initial sepsis screen is negative. Care prior to arrival: None. 04:08 Method Of Arrival: Ambulatory lp1 04:08 Acuity: IRENE 2 lp1 Historical: - Allergies: 04:11 No Known Allergies; lp1 - Home Meds: 04:11 Buspirone Oral 3 times per day [Active]; Cymbalta Oral [Active]; gabapentin 400 mg Oral lp1 cap 3 times per day [Active]; hydroxyzine HCl 50 mg Oral tab 1 tab as needed [Active]; prazosin 2 mg Oral cap 1 cap daily [Active]; Suboxone sublingual [Active]; - PMHx: 04:11 Anxiety; Depression; nightmares; PTSD; Chronic pain; lp1 - PSHx: 04:11 Lasik; lp1 - Immunization history:: Adult Immunizations up to date. - Social history:: Smoking status: Patient uses tobacco products, smokes one-half pack cigarettes per day. - Ebola Screening: : No symptoms or risks identified at this time. - Family history:: not pertinent. - Hospitalizations: : Patient was recently seen at. Screenin:11 Abuse screen: Denies threats or abuse. Denies injuries from another. Nutritional lp1 screening: No deficits noted. Tuberculosis screening: No symptoms or risk factors identified. Fall Risk None identified. Assessment: 04:11 General: Appears uncomfortable, Behavior is restless. Pain: Complains of pain in lp1 abdomen Pain currently is 10 out of 10 on a pain scale. Pain began 1 hour ago. Neuro: Level of Consciousness is awake, alert, obeys commands, Oriented to person, place, time, situation. Cardiovascular: Patient's skin is warm and dry. Respiratory: Respiratory effort is even, Breath sounds are clear bilaterally. GI: Abdomen is non-distended, Pt is actively vomiting bright red blood, Reports nausea. : No signs and/or symptoms were reported regarding the genitourinary system. EENT: No signs and/or symptoms were reported regarding the EENT system. Derm: Skin is pink, warm \T\ dry. Musculoskeletal: No deficits noted. 05:10 Reassessment: Patient and/or family updated on plan of care and expected duration. Pain lp1 level reassessed. Patient complaint of continued pain; Provider notified. 06:15 Reassessment: Patient appears in no apparent distress at this time. Patient and/or lp1 family updated on plan of care and expected duration. Pain level reassessed. Patient resting, eyes closed, respirations unlabored. Vital Signs: 04:08 BP 111 / 83; Pulse 107; Resp 18; Temp 97.3(TE); Pulse Ox 98% on R/A; Weight 68.04 kg; lp1 Height 5 ft. 3 in. (160.02 cm); Pain 10/10; 05:15 BP 108 / 67; Pulse 80; Resp 16; Pulse Ox 98% on R/A; Pain 9/10; lp1 06:15 BP 109 / 79; Pulse 77; Resp 16; Pulse Ox 97% on R/A; lp1 04:08 Body Mass Index 26.57 (68.04 kg, 160.02 cm) lp1 ED Course: 03:55 Patient arrived in ED. am2 03:55 Gilberto Tracey MD is Attending Physician. rn 04:10 Triage completed. lp1 04:10 Arm band placed on right wrist. lp1 04:11 Patient has correct armband on for positive identification. Pulse ox on. NIBP on. lp1 04:17 Inserted saline lock: 20 gauge in left antecubital area, using aseptic technique. ag4 04:32 X-ray completed. Portable x-ray completed in exam room. Patient tolerated procedure kw well. 04:33 XRAY Chest (1 view) In Process Unspecified. EDMS 04:33 Sherry Catalan, RN is Primary Nurse. lp1 06:25 No provider procedures requiring assistance completed. lp1 06:31 Nelson Hall MD is Referral Physician. rn 06:43 IV discontinued, No redness/swelling at site. Pressure dressing applied. lp1 Administered Medications: 04:34 Not Given (Patient Refused): Tussionex Pennkinetic ER 5 ml PO once lp1 05:06 Drug: Tessalon Perle 200 mg Route: PO; lp1 06:30 Follow up: Response: Marked relief of symptoms lp1 05:22 Drug: fentaNYL (PF) 50 mcg Route: IVP; Site: left antecubital; lp1 06:30 Follow up: Response: Pain is decreased lp1 Outcome: 06:31 Discharge ordered by MD. rn 06:43 Discharged to home ambulatory, with significant other. lp1 06:43 Condition: good 06:43 Discharge instructions given to patient, significant other, Instructed on discharge instructions, follow up and referral plans. medication usage, Demonstrated understanding of instructions, follow-up care, medications, Prescriptions given X 1. 06:45 Patient left the ED. lp1 Signatures: Dispatcher [employer] EDMS Gilberto Tracey MD MD rn Whitley, Kimberlee kw Pena, Laura, RN RN lp1 Krista Gutierrez am2 Hai Young ag4 Corrections: (The following items were deleted from the chart) 04:13 04:11 GI: Abdomen is non-distended, Pt is actively vomiting bright red blood, lp1 lp1
--- NOTE | 2018-12-12 06:32 | EDPHYS ---
Physician Documentation [facility] Name: Karl Andujar Age: 33 yrs Sex: Male : 1985 Arrival Date: 12/12/2018 Time: 03:55 Bed 6 Private MD: ED Physician Gilberto Tracey HPI: 12/12 06:22 This 33 yrs old Male presents to ER via Ambulatory with complaints of rn coughing blood. 06:22 The patient or guardian reports cough, described as moderate, with no sputum. Onset: rn The symptoms/episode began/occurred 1 month(s) ago. Severity of symptoms: At their worst the symptoms were moderate, in the emergency department the symptoms are unchanged. Modifying factors: The symptoms are alleviated by nothing, the symptoms are aggravated by nothing. The patient has experienced similar episodes in the past. Reports coughing up blood again, has been admitted twice with evrything up to bronchoscopy normal, had GI scopes normal. Reports is intermittent and now seems to be flared up again. No fever. NO trauma. + active smoker, told to stop, hasn't stopped. No known autoimmune or family hx of same. . Historical: - Allergies: 04:11 No Known Allergies; lp1 - Home Meds: 04:11 Buspirone Oral 3 times per day [Active]; Cymbalta Oral [Active]; gabapentin 400 mg Oral lp1 cap 3 times per day [Active]; hydroxyzine HCl 50 mg Oral tab 1 tab as needed [Active]; prazosin 2 mg Oral cap 1 cap daily [Active]; Suboxone sublingual [Active]; - PMHx: 04:11 Anxiety; Depression; nightmares; PTSD; Chronic pain; lp1 - PSHx: 04:11 Lasik; lp1 - Immunization history:: Adult Immunizations up to date. - Social history:: Smoking status: Patient uses tobacco products, smokes one-half pack cigarettes per day. - Ebola Screening: : No symptoms or risks identified at this time. - Family history:: not pertinent. - Hospitalizations: : Patient was recently seen at. ROS: 06:22 Constitutional: Negative for fever, chills, and weight loss, Eyes: Negative for injury, rn pain, redness, and discharge, Cardiovascular: Negative for chest pain, palpitations, and edema, Respiratory: + cough and hemoptysis Abdomen/GI: Negative for abdominal pain, nausea, vomiting, diarrhea, and constipation, MS/Extremity: Negative for injury and deformity, Skin: Negative for injury, rash, and discoloration, Neuro: Negative for headache, weakness, numbness, tingling, and seizure. Exam: 06:22 Constitutional: This is a well developed, well nourished patient who is awake, alert, rn + coughing, no visible blood here Head/Face: Normocephalic, atraumatic. ENT: no oral trauma or bleeding Cardiovascular: Regular rate and rhythm. No pulse deficits. Respiratory: Lungs have equal breath sounds bilaterally, clear to auscultation. No increased work of breathing, no retractions or nasal flaring. Skin: Warm, dry MS/ Extremity: Pulses equal, no cyanosis. Neurovascular intact. Full, normal range of motion. Equal circumference. Neuro: Awake and alert, GCS 15, oriented to person, place, time, and situation. Cranial nerves II-XII grossly intact. Motor strength 5/5 in all extremities. Sensory grossly intact. Cerebellar exam normal. Normal gait. Vital Signs: 04:08 BP 111 / 83; Pulse 107; Resp 18; Temp 97.3(TE); Pulse Ox 98% on R/A; Weight 68.04 kg; lp1 Height 5 ft. 3 in. (160.02 cm); Pain 10/10; 05:15 BP 108 / 67; Pulse 80; Resp 16; Pulse Ox 98% on R/A; Pain 9/10; lp1 06:15 BP 109 / 79; Pulse 77; Resp 16; Pulse Ox 97% on R/A; lp1 04:08 Body Mass Index 26.57 (68.04 kg, 160.02 cm) lp1 MDM: 03:55 Patient medically screened. rn 06:22 Differential Diagnosis: Bronchitis. Differential Diagnosis: Upper Respiratory Infection rn Viral Syndrome. Data reviewed: vital signs, nurses notes, lab test result(s), radiologic studies, plain films, and as a result, I will discharge patient. Counseling: I had a detailed discussion with the patient and/or guardian regarding: the historical points, exam findings, and any diagnostic results supporting the discharge/admit diagnosis, lab results, radiology results, the need for outpatient follow up, to return to the emergency department if symptoms worsen or persist or if there are any questions or concerns that arise at home. Special discussion: I discussed with the patient/guardian in detail that at this point there is no indication for admission to the hospital. It is understood, however, that if the symptoms persist or worsen the patient needs to return immediately for re-evaluation. Based on the history and exam findings, there is no indication for further emergent testing or inpatient evaluation. I discussed with the patient/guardian the need to see the developmental electronics assembler for further evaluation of the symptoms. ED course: Symptoms now present for a little more than a month, hemoglobin stable, normal vitals, after cough medication, cough ceased, no oxygen requirement, no new findings.. 12/12 04:18 Order name: CBC with Diff; Complete Time: 05:02 rn 12/12 04:18 Order name: Basic Metabolic Panel; Complete Time: 05:02 rn 12/12 04:18 Order name: PT-INR; Complete Time: 05:02 rn 12/12 04:18 Order name: Ptt, Activated; Complete Time: 05:02 rn 12/12 04:18 Order name: XRAY Chest (1 view) rn 12/12 04:18 Order name: IV Start; Complete Time: 04:20 rn Administered Medications: 04:34 Not Given (Patient Refused): Tussionex Pennkinetic ER 5 ml PO once lp1 05:06 Drug: Tessalon Perle 200 mg Route: PO; lp1 06:30 Follow up: Response: Marked relief of symptoms lp1 05:22 Drug: fentaNYL (PF) 50 mcg Route: IVP; Site: left antecubital; lp1 06:30 Follow up: Response: Pain is decreased lp1 Disposition: 12/12/18 06:31 Discharged to Home. Impression: Hemoptysis. - Condition is Stable. - Discharge Instructions: Hemoptysis. - Prescriptions for Guaifenesin AC 10- 100 mg/5 mL Oral Liquid - take 10 milliliter by ORAL route every 4 hours As needed; 240 milliliter. - Medication Reconciliation Form, Thank You Letter, Antibiotic Education, Prescription Opioid Use form. - Follow up: Nelson Hall MD; When: As needed; Reason: Recheck today's complaints, Re-evaluation by your physician. - Problem is an ongoing problem. - Symptoms have improved. Signatures: Dispatcher [employer] EDMS Gilberto Tracey MD MD rn Sherry Catalan RN RN lp1 Corrections: (The following items were deleted from the chart) 06:45 06:31 12/12/2018 06:31 Discharged to Home. Impression: Hemoptysis. Condition is Stable. lp1 Forms are Medication Reconciliation Form, Thank You Letter, Antibiotic Education, Prescription Opioid Use. Follow up: Nelson Hall; When: As needed; Reason: Recheck today's complaints, Re-evaluation by your physician. Problem is an ongoing problem. Symptoms have improved. rn
--- OUTSIDE RECORDS SUMMARY | 2018-12-12 12:43 | XMS REPORT ---
:1985 [facility] Address [address] [place] [address] [address] [place] [address] Care Team Providers Name Role Phone Unavailable Unavailable Unavailable Problems This patient has no known problems. Allergies, Adverse Reactions, Alerts This patient has no known allergies or adverse reactions. Medications This patient has no known medications.
--- NOTE | 2018-12-12 20:46 | RAD REPORT ---
EXAM DESCRIPTION: RAD - Chest Single View - 12/12/2018 11:44 am CLINICAL HISTORY: hemoptysis;Cough Chest pain. COMPARISON: Chest Single View dated 11/10/2018; Chest Single View dated 11/05/2018; Chest For Pe Angio dated 11/10/2018 FINDINGS: Portable technique limits examination quality. The lungs are grossly clear. The heart is normal in size. No displaced fractures. IMPRESSION: No acute intrathoracic process suspected.
== END 2018-12-12 06:45 | disposition home or self-care (01) ==
LOC: ER 03:54
DX: R04.2 Hemoptysis (principal); F41.8 Other specified anxiety disorders; G89.29 Other chronic pain; F43.10 Post-traumatic stress disorder, unspecified; F17.210 Nicotine dependence, cigarettes, uncomplicated
CPT/HCPCS: 36415; 71045; 80048; 85025; 85610; 85730; 96374; 99284; J3010

== ENCOUNTER 2019-01-08 01:36 | Emergency (ER) | payer OTHER ==
--- OUTSIDE RECORDS SUMMARY | 2019-01-08 01:38 | XMS REPORT ---
:1985 [facility] Address [address] [place] [address] [address] [place] [address] Care Team Providers Name Role Phone Unavailable Unavailable Unavailable Problems This patient has no known problems. Allergies, Adverse Reactions, Alerts This patient has no known allergies or adverse reactions. Medications This patient has no known medications.
--- NOTE | 2019-01-08 02:03 | EDPHYS ---
Physician Documentation [facility] Name: Karl Andujar Age: 33 yrs Sex: Male : 1985 Arrival Date: 01/08/2019 Time: 01:49 Bed 7 Private MD: ED Physician Carlton Hernandez HPI: 01/08 01:52 This 33 yrs old Male presents to ER via Unassigned with complaints of dontae Overdose. 01:52 The patient presents to the emergency department after a known overdose. Associated dontae signs and symptoms: The patient has no apparent associated signs or symptoms. Severity of symptoms: At their worst the symptoms were mild moderate in the emergency department the symptoms are unchanged. The patient has not experienced similar symptoms in the past. Historical: - Allergies: :59 No Known Allergies; bb - Home Meds: :59 Buspirone Oral 3 times per day [Active]; Cymbalta Oral [Active]; gabapentin 400 mg Oral bb cap 3 times per day [Active]; hydroxyzine HCl 50 mg Oral tab 1 tab as needed [Active]; prazosin 2 mg Oral cap 1 cap daily [Active]; Suboxone sublingual [Active]; - PMHx: 01:59 Anxiety; Chronic pain; Depression; nightmares; PTSD; broken back; bb - PSHx: :59 Lasik; bb - Immunization history:: Adult Immunizations up to date. - Social history:: Smoking status: Patient uses tobacco products, smokes one pack cigarettes per day. - Family history:: not pertinent. - Ebola Screening: : No symptoms or risks identified at this time. ROS: 01:53 Constitutional: Negative for fever, chills, and weight loss, Eyes: Negative for injury, dontae pain, redness, and discharge, ENT: Negative for injury, pain, and discharge, Neck: Negative for injury, pain, and swelling, Cardiovascular: Negative for chest pain, palpitations, and edema, Respiratory: Negative for shortness of breath, cough, wheezing, and pleuritic chest pain, Back: Negative for injury and pain, : Negative for injury, bleeding, discharge, and swelling, MS/Extremity: Negative for injury and deformity, Skin: Negative for injury, rash, and discoloration, Psych: Negative for depression, anxiety, suicide ideation, homicidal ideation, and hallucinations, Allergy/Immunology: Negative for hives, rash, and allergies, Endocrine: Negative for neck swelling, polydipsia, polyuria, polyphagia, and marked weight changes, Hematologic/Lymphatic: Negative for swollen nodes, abnormal bleeding, and unusual bruising. 01:53 Abdomen/GI: Positive for abdominal pain, nausea. 01:53 Neuro: Positive for altered mental status. Exam: 01:53 Constitutional: This is a well developed, well nourished patient who is awake, alert, dontae and in no acute distress. Head/Face: Normocephalic, atraumatic. Eyes: Pupils equal round and reactive to light, extra-ocular motions intact. Lids and lashes normal. Conjunctiva and sclera are non-icteric and not injected. Cornea within normal limits. Periorbital areas with no swelling, redness, or edema. ENT: Nares patent. No nasal discharge, no septal abnormalities noted. Tympanic membranes are normal and external auditory canals are clear. Oropharynx with no redness, swelling, or masses, exudates, or evidence of obstruction, uvula midline. Mucous membranes moist. Neck: Trachea midline, no thyromegaly or masses palpated, and no cervical lymphadenopathy. Supple, full range of motion without nuchal rigidity, or vertebral point tenderness. No Meningismus. Chest/axilla: Normal chest wall appearance and motion. Nontender with no deformity. No lesions are appreciated. Cardiovascular: Regular rate and rhythm with a normal S1 and S2. No gallops, murmurs, or rubs. Normal PMI, no JVD. No pulse deficits. Respiratory: Lungs have equal breath sounds bilaterally, clear to auscultation and percussion. No rales, rhonchi or wheezes noted. No increased work of breathing, no retractions or nasal flaring. Back: No spinal tenderness. No costovertebral tenderness. Full range of motion. Male : Normal genitalia with no discharge or lesions. Skin: Warm, dry with normal turgor. Normal color with no rashes, no lesions, and no evidence of cellulitis. MS/ Extremity: Pulses equal, no cyanosis. Neurovascular intact. Full, normal range of motion. Neuro: Awake and alert, GCS 15, oriented to person, place, time, and situation. Cranial nerves II-XII grossly intact. Motor strength 5/5 in all extremities. Sensory grossly intact. Cerebellar exam normal. Normal gait. Psych: Awake, alert, with orientation to person, place and time. Behavior, mood, and affect are within normal limits. 01:53 Abdomen/GI: Inspection: abdomen appears normal, Bowel sounds: normal, Palpation: abdomen is soft and non-tender, Liver: no appreciated palpable abnormalities, Hernia: not appreciated. Vital Signs: 01:59 BP 114 / 75; Pulse 95; Resp 18 S; Temp 98.5; Pulse Ox 98% on R/A; Weight 72.57 kg (R); bb Height 5 ft. 3 in. (160.02 cm) (R); Pain 10/10; 02:30 BP 116 / 98; Pulse 104; Resp 19; Pulse Ox 97% on R/A; lp1 03:17 BP 113 / 93; Pulse 81; Resp 18; Pulse Ox 98% on R/A; Pain 9/10; lp1 04:00 BP 97 / 60; Pulse 83; Resp 17; Pulse Ox 95% on R/A; lp1 04:45 BP 98 / 65; Pulse 82; Resp 16; Pulse Ox 93% on R/A; lp1 05:30 BP 95 / 59; Pulse 76; Resp 12; Pulse Ox 95% on R/A; lp1 06:15 BP 101 / 69; Pulse 79; Resp 12; Pulse Ox 95% on R/A; lp1 07:00 BP 95 / 60; Pulse 74; Resp 12; Pulse Ox 95% on R/A; lp1 08:18 BP 93 / 67; Pulse 70; Resp 17; Pulse Ox 97% on R/A; jb1 09:00 BP 98 / 72; Pulse 72; Resp 18; Pulse Ox 99% on R/A; jb1 10:34 BP 107 / 75; Pulse 78; Resp 18; Pulse Ox 100% on R/A; jb1 01:59 Body Mass Index 28.34 (72.57 kg, 160.02 cm) bb MDM: 01:50 Patient medically screened. [facility] 01:54 Data reviewed: vital signs, nurses notes, lab test result(s), EKG, radiologic studies, [facility] CT scan, plain films. 09:22 Data interpreted: Pulse oximetry: on room air is 100 %. Interpretation: normal. ED kb course: Pt was sleeping comfortably this morning when I took over care. now at bedside. Discussed yesterday's events with pt and . Pt reports he took a bunch of gabapentin around 1900 trying to kill himself. States he just doesn't want to be here anymore. Denies any new stresses or reasons for actions. States the suicidal ideations all come from PTSD. . ED course: states pt went to the [facility] yesterday and got the new prescription. States she normally goes with him and dispenses his meds because he has had issues with taking too many in the past, but she didn't go yesterday. When she counted the pills in the new bottle around 2300 there were 90 missing so she called him at work and questioned him. Said he admitted to taking them all so she called 911. Reports pt has tried to kill himself in the past by cutting his wrists (a year ago), but never by taking pills. . 09:30 ED course: Pt is awake, alert and oriented x3. No neuro deficits. no complaints. 11:28 Counseling: I had a detailed discussion with the patient and/or guardian regarding: the historical points, exam findings, and any diagnostic results supporting the discharge/admit diagnosis, lab results, radiology results, the need to transfer to another facility, [facility] does not immediately have the required specialist. ED course: Discussed pt condition and history with [facility] Accepts pt for transfer. 01/08 01:52 Order name: Basic Metabolic Panel [facility] 01/08 01:52 Order name: CBC with Diff 01/08 01:52 Order name: LFT's; Complete Time: 03:[address] [facility] 01/08 01:52 Order name: Magnesium; Complete Time: 03:[address] [facility] 01/08 01:52 Order name: NT PRO-BNP; Complete Time: 03:[address] [facility] 01/08 01:52 Order name: PT-INR; Complete Time: 03:[address] [facility] 01/08 01:52 Order name: Troponin (emerg Dept Use Only); Complete Time: 03:[address] [facility] 01/08 01:52 Order name: Lipase; Complete Time: 03:[address] [facility] 01/08 01:52 Order name: Acetaminophen; Complete Time: 03:[address] [facility] 01/08 01:52 Order name: ETOH Level; Complete Time: 03:[address] [facility] 01/08 01:52 Order name: Ptt, Activated; Complete Time: 03:[address] [facility] 01/08 01:52 Order name: Salicylate; Complete Time: 03:[address] [facility] 01/08 01:52 Order name: Urine Drug Screen; Complete Time: 05:[address] [facility] 01/08 01:53 Order name: CK; Complete Time: 03:[address] [facility] 01/08 01:52 Order name: XRAY Chest (1 view); Complete Time: 08:[address] [facility] 01/08 01:52 Order name: EKG; Complete Time: 02:[address] [facility] 01/08 01:52 Order name: Cardiac monitoring; Complete Time: 02:[address] [facility] 01/08 01:52 Order name: EKG - Nurse/Tech; Complete Time: 02:[address] [facility] 01/08 01:53 Order name: Ckmb; Complete Time: 03:[address] [facility] 01/08 01:59 Order name: Basic Metabolic Panel; Complete Time: 03:20 EDMS 01/08 01:59 Order name: CBC with Automated Diff; Complete Time: 03:20 EDMS 01/08 03:08 Order name: Urine Dipstick--Ancillary (enter results); Complete Time: 03:20 [facility] 01/08 08:41 Order name: Diet Regular; Complete Time: 08:[address] [facility] 01/08 01:52 Order name: IV Saline Lock; Complete Time: 02:[address] [facility] 01/08 01:52 Order name: Labs collected and sent; Complete Time: 02:[address] [facility] 01/08 01:52 Order name: O2 Per Protocol; Complete Time: 02:[address] [facility] 01/08 01:52 Order name: O2 Sat Monitoring; Complete Time: 02:[address] [facility] 01/08 01:52 Order name: Seizure Precautions; Complete Time: 02:[address] [facility] 01/08 01:52 Order name: Urine Dipstick-Ancillary (obtain specimen); Complete Time: 03:[address] [facility] Administered Medications: 02:00 Drug: NS 0.9% 1000 ml Route: IV; Rate: 1 bolus; Site: right antecubital; lp1 03:17 Follow up: IV Status: Completed infusion; IV Intake: 1000ml lp1 02:20 Drug: Zofran 4 mg Route: IVP; Site: right antecubital; lp1 03:05 Follow up: Response: No adverse reaction; Marked relief of symptoms lp1 02:22 Drug: ProTONIX 40 mg Route: IVP; Site: right antecubital; lp1 03:04 Follow up: Response: Marked relief of symptoms lp1 02:24 Drug: Ativan 1 mg Route: IVP; Site: right antecubital; lp1 03:05 Follow up: Response: Marked relief of symptoms lp1 02:26 Drug: morphine 2 mg Route: IVP; Site: right antecubital; lp1 03:05 Follow up: Response: No adverse reaction; Marked relief of symptoms lp1 03:17 Drug: morphine 2 mg Route: IVP; Site: right antecubital; lp1 03:44 Follow up: Response: No adverse reaction; Marked relief of symptoms lp1 03:42 Drug: NS 0.9% with KCl 20 mEq/L 1000 ml Route: IV; Rate: 125 ml/hr; Site: right lp1 antecubital; Disposition: 01/08/19 02:02 Transfer ordered to [facility]. Diagnosis are Major depressive disorder, recurrent, Poisoning by other drugs, medicaments and biological substances, intentional self-harm, Post-traumatic stress disorder (PTSD), Suicidal ideations, Suicide attempt. - Reason for transfer: Higher level of care. - Accepting physician is Dr Israel. - Condition is Stable. - Problem is new. - Symptoms have improved. Signatures: Dispatcher [employer] EDMS Christina Velásquez, BUSINESS SALES CONSULTANT-C BUSINESS SALES CONSULTANT-Ckb Carlton Hernandez MD MD cha Ballard, Brenda, RN RN bb Sherry Catalan RN RN lp1 Kenia Cormier RN RN Corrections: (The following items were deleted from the chart) 11:42 02:02 01/08/2019 02:02 Transfer ordered to [facility]. Diagnosis is Major depressive disorder, recurrent; Poisoning by other drugs, medicaments and biological substances, intentional self-harm; Post-traumatic stress disorder (PTSD). Reason for transfer: Higher level of care. Accepting physician is to tn. Condition is Stable. Problem is new. Symptoms have improved. dontae 11:45 11:42 01/08/2019 02:02 Transfer ordered to [facility]. Diagnosis is Major depressive disorder, recurrent; Poisoning by other drugs, medicaments and biological substances, intentional self-harm; Post-traumatic stress disorder (PTSD); Suicidal ideations; Suicide attempt. Reason for transfer: Higher level of care. Accepting physician is to tn. Condition is Stable. Problem is new. Symptoms have improved. kb 12:18 11:45 01/08/2019 02:02 Transfer ordered to [facility]. Diagnosis is Major depressive disorder, recurrent; Poisoning by other drugs, medicaments and biological substances, intentional self-harm; Post-traumatic stress disorder (PTSD); Suicidal ideations; Suicide attempt. Reason for transfer: Higher level of care. Accepting physician is Dr Israel. Condition is Stable. Problem is new. Symptoms have improved. kb
--- NOTE | 2019-01-08 02:03 | ER ---
Nurse's Notes [facility] Name: Karl Andujar Age: 33 yrs Sex: Male : 1985 Arrival Date: 01/08/2019 Time: 01:49 Bed 7 Private MD: Diagnosis: Major depressive disorder, recurrent;Poisoning by other drugs, medicaments and biological substances, intentional self-harm;Post-traumatic stress disorder (PTSD);Suicidal ideations;Suicide attempt Presentation: 01/08 01:53 Presenting complaint: EMS states: they were toned out for report of pt having overdosed bb on gabapentin 400 mgs x 90 pills, pt had vomited blood on the scene and stated he took the pills in an attempt to kill himself. Transition of care: patient was not received from another setting of care. Onset of symptoms was January 08, 2019. Risk Assessment: Do you want to hurt yourself or someone else? Patient reports desire/thoughts of hurting themselves or someone else. Provider notified. Initial Sepsis Screen: Does the patient meet any 2 criteria? No. Patient's initial sepsis screen is negative. Does the patient have a suspected source of infection? No. Patient's initial sepsis screen is negative. Care prior to arrival: None. 01:53 Method Of Arrival: EMS: [facility] 01:53 Acuity: IRENE 1 bb Historical: - Allergies: No Known Allergies; bb - Home Meds: :59 Buspirone Oral 3 times per day [Active]; Cymbalta Oral [Active]; gabapentin 400 mg Oral bb cap 3 times per day [Active]; hydroxyzine HCl 50 mg Oral tab 1 tab as needed [Active]; prazosin 2 mg Oral cap 1 cap daily [Active]; Suboxone sublingual [Active]; - PMHx: :59 Anxiety; Chronic pain; Depression; nightmares; PTSD; broken back; bb - PSHx: Lasik; bb - Immunization history:: Adult Immunizations up to date. - Social history:: Smoking status: Patient uses tobacco products, smokes one pack cigarettes per day. - Family history:: not pertinent. - Ebola Screening: : No symptoms or risks identified at this time. Screenin:03 Abuse screen: Denies threats or abuse. Nutritional screening: No deficits noted. bb Tuberculosis screening: No symptoms or risk factors identified. Fall Risk Secondary diagnosis (15 points) IV access (20 points). Mental Status- Overestimates/Forgets Limitations (15 pts.). Total Garza Fall Scale indicates High Risk Score (45 or more points). Fall prevention measures have been instituted. Side Rails Up X 2 1:1 Attendant Assigned. Assessment: 02:03 General: Appears uncomfortable, unkempt, Behavior is agitated, anxious, crying, fussy, lp1 restless. Pain: Complains of pain in to general body Pain currently is 10 out of 10 on a pain scale. Neuro: Level of Consciousness is awake, alert, obeys commands, Oriented to person, place, situation, Speech is normal. Cardiovascular: Patient's skin is warm and dry. Respiratory: Airway is patent Respiratory effort is even, unlabored. GI: Abdomen is non-distended, Reports lower abdominal pain, upper abdominal pain, cramping. : No signs and/or symptoms were reported regarding the genitourinary system. EENT: No deficits noted. Derm: Skin is intact, Skin is dry, Skin is normal. Musculoskeletal: Reports cramping to general body, continues twitching in stretcher; States "I should've taken more pills so I wouldn't have to go through this". 02:05 Reassessment: spoke to Poison Control who recommends pt have a minimum of 6 hours of bb observation monitoring for signs and or symptoms of HOTEL CLERK depression, respiratory depression, watch for need for airway management, there may be some mild hypotension which should respond to IV fluids but if not vasopressors may be necessary. Pt may present as ETOH intoxication with slurred speech or ataxia. Recommend toxic work-up with addition of CK levels to monitor for rhabdomyolysis. 02:20 Reassessment: Patient's belongings given to security, inventory list completed. lp1 02:25 Reassessment: Patient's at bedside at this time. lp1 03:03 Reassessment: Patient provided urine specimen at this time; States "I feel a little lp1 better, but can I have just another small dose of morphine?"; Patient appears with less twitching, tremors, not crying at this time. 03:42 Reassessment: Patient resting, eyes closed, respirations unlabored; states going lp1 home at this time. 04:30 Reassessment: Patient appears in no apparent distress at this time. Patient resting, lp1 eyes closed, respirations unlabored;. 05:00 Reassessment: handed patient's belongings at this time to take home. lp1 05:32 Reassessment: Patient appears in no apparent distress at this time. No changes from lp1 previously documented assessment. 06:30 Reassessment: No changes from previously documented assessment. Sitter at bedside. lp1 07:15 Reassessment: Patient appears in no apparent distress at this time. Patient and/or hb family updated on plan of care and expected duration. Pain level reassessed. Patient is alert, oriented x 3, equal unlabored respirations, skin warm/dry/pink. 08:00 Reassessment: Patient appears in no apparent distress at this time. Patient and/or hb family updated on plan of care and expected duration. Pain level reassessed. Patient is alert, oriented x 3, equal unlabored respirations, skin warm/dry/pink. 09:00 Reassessment: Patient appears in no apparent distress at this time. No changes from previously documented assessment. Patient and/or family updated on plan of care and expected duration. Pain level reassessed. Patient is alert, oriented x 3, equal unlabored respirations, skin warm/dry/pink. 10:00 Reassessment: Patient appears in no apparent distress at this time. Patient and/or hb family updated on plan of care and expected duration. Pain level reassessed. Patient is alert, oriented x 3, equal unlabored respirations, skin warm/dry/pink. 11:00 Reassessment: Patient appears in no apparent distress at this time. Patient and/or hb family updated on plan of care and expected duration. Pain level reassessed. Patient is alert, oriented x 3, equal unlabored respirations, skin warm/dry/pink. 12:00 Reassessment: Patient appears in no apparent distress at this time. Patient and/or hb family updated on plan of care and expected duration. Pain level reassessed. Patient is alert, oriented x 3, equal unlabored respirations, skin warm/dry/pink. Psych: 02:01 Subjective: Patient's mood is sad, Having thoughts of suicide. Plan for suicide is bb overdose. Objective: Patient is restless. Interventions: Removed personal items and placed in bag. Patient placed in hospital gown. Suicide Risk Assessment: Sad Person Scale: Sex of patient: Male: Score 1 point. Age of patient: Score 0 point if patient falls outside of specified age parameters. Depression: Score 1 point if signs of depression are present. Previous Attempt: Score 1 point if patient has previously attempted suicide. Substance Abuse: Score 1 point if patient abuses alcohol or drugs. Rational Thinking: Score 1 point if patient is lacking rational thinking. Organized Plan: Score 1 point if patient had a plan in place. Chronic Sickness: Score 1 point if patient has illness, chronic, debilitating, or severe. TOTAL POINTS: If total points are 5-6, proposed clinical action is to strongly consider hospitalization, depending upon confidence in the follow-up arrangement. Implement suicide precautions. 02:04 Safety Checks: Personal items have been removed. Door is open. No visitors are present bb at this time. over dose on gabapentin. Overdose: 02:01 Patient took 90 gabapentin 400 mg. Overdose occurred 1-2 hours ago. bb Vital Signs: 01:59 BP 114 / 75; Pulse 95; Resp 18 S; Temp 98.5; Pulse Ox 98% on R/A; Weight 72.57 kg (R); bb Height 5 ft. 3 in. (160.02 cm) (R); Pain 10/10; 02:30 BP 116 / 98; Pulse 104; Resp 19; Pulse Ox 97% on R/A; lp1 03:17 BP 113 / 93; Pulse 81; Resp 18; Pulse Ox 98% on R/A; Pain 9/10; lp1 04:00 BP 97 / 60; Pulse 83; Resp 17; Pulse Ox 95% on R/A; lp1 04:45 BP 98 / 65; Pulse 82; Resp 16; Pulse Ox 93% on R/A; lp1 05:30 BP 95 / 59; Pulse 76; Resp 12; Pulse Ox 95% on R/A; lp1 06:15 BP 101 / 69; Pulse 79; Resp 12; Pulse Ox 95% on R/A; lp1 07:00 BP 95 / 60; Pulse 74; Resp 12; Pulse Ox 95% on R/A; lp1 08:18 BP 93 / 67; Pulse 70; Resp 17; Pulse Ox 97% on R/A; jb1 09:00 BP 98 / 72; Pulse 72; Resp 18; Pulse Ox 99% on R/A; jb1 10:34 BP 107 / 75; Pulse 78; Resp 18; Pulse Ox 100% on R/A; jb1 01:59 Body Mass Index 28.34 (72.57 kg, 160.02 cm) bb ED Course: 01:43 Inserted saline lock: 20 gauge in right antecubital area, using aseptic technique. mw2 Blood collected. 01:49 Patient arrived in ED. lp1 01:50 Carlton Hernandez MD is Attending Physician. [facility] 01:56 Triage completed. bb 01:59 Sherry Catalan, RN is Primary Nurse. lp1 01:59 Arm band placed on Patient placed in an exam room, on a stretcher, on manager monitoring, bb on pulse oximetry. EKG completed in triage. Results shown to . 02:00 Safety checks: Items removed: yes. Door open/sign placed on door: yes. Family/friend ag4 present: no. Sitter present: Yes. 02:01 Patient has correct armband on for positive identification. Placed in gown. Bed in low lp1 position. Side rails up X2. Valuables inventory done. Locked in safe. Seizure precautions initiated. 02:13 X-ray completed. Portable x-ray completed in exam room. Patient tolerated procedure kw well. 02:14 XRAY Chest (1 view) In Process Unspecified. EDMS 02:15 Safety checks: Items removed: yes. Door open/sign placed on door: yes. Family/friend ag4 present: no. Sitter present: Yes. 02:30 Safety checks: Items removed: yes. Door open/sign placed on door: yes. Family/friend ag4 present: no. Sitter present: Yes. 02:45 Safety checks: Items removed: yes. Door open/sign placed on door: yes. Family/friend ag4 present: yes. Sitter present: Yes. 03:00 Safety checks: Items removed: yes. Door open/sign placed on door: yes. Family/friend ag4 present: yes. Sitter present: Yes. 03:15 Safety checks: Items removed: yes. Door open/sign placed on door: yes. Family/friend ag4 present: yes. Sitter present: Yes. 03:30 Safety checks: Items removed: yes. Door open/sign placed on door: yes. Family/friend ag4 present: yes. Sitter present: Yes. 03:45 Safety checks: Items removed: yes. Door open/sign placed on door: yes. Family/friend ag4 present: no. Sitter present: Yes. 04:00 Safety checks: Items removed: yes. Door open/sign placed on door: yes. Family/friend ag4 present: no. Sitter present: Yes. 04:15 Safety checks: Items removed: yes. Door open/sign placed on door: yes. Family/friend ag4 present: no. Sitter present: Yes. 04:30 Safety checks: Items removed: yes. Door open/sign placed on door: yes. Family/friend ag4 present: no. Sitter present: Yes. 04:45 Safety checks: Items removed: yes. Door open/sign placed on door: yes. Family/friend ag4 present: no. Sitter present: Yes. 05:00 Safety checks: Items removed: yes. Door open/sign placed on door: yes. Family/friend ag4 present: no. Sitter present: Yes. 05:15 Safety checks: Items removed: yes. Door open/sign placed on door: yes. Family/friend ag4 present: no. Sitter present: Yes. 05:30 Safety checks: Items removed: yes. Door open/sign placed on door: yes. Family/friend ag4 present: no. Sitter present: Yes. 05:45 Safety checks: Items removed: yes. Door open/sign placed on door: yes. Family/friend ag4 present: no. Sitter present: Yes. 06:00 Safety checks: Items removed: yes. Door open/sign placed on door: yes. Family/friend ag4 present: yes. Sitter present: Yes. 06:15 Safety checks: Items removed: yes. Door open/sign placed on door: yes. Family/friend ag4 present: no. Sitter present: Yes. 06:30 Safety checks: Items removed: yes. Door open/sign placed on door: yes. Family/friend ag4 present: no. Sitter present: Yes. 06:45 Safety checks: Items removed: yes. Door open/sign placed on door: yes. Family/friend ag4 present: no. Sitter present: Yes. 06:58 Safety checks: Items removed: yes. Door open/sign placed on door: yes. Family/friend ag4 present: no. Sitter present: Yes. 07:00 Safety checks: Items removed: yes. Door open/sign placed on door: yes. Family/friend ag4 present: no. Sitter present: Yes. 07:15 Safety checks: Items removed: yes. Door open/sign placed on door: yes. Family/friend jb1 present: no. Sitter present: Yes. 07:27 Christina Velásquez FNP-C is PHCP. kb 07:30 Safety checks: Items removed: yes. Door open/sign placed on door: yes. Family/friend jb1 present: no. Sitter present: Yes. 07:45 Safety checks: Items removed: yes. Door open/sign placed on door: yes. Family/friend jb1 present: no. Sitter present: Yes. 08:00 Safety checks: Items removed: yes. Door open/sign placed on door: yes. Family/friend jb1 present: no. Sitter present: Yes. 08:15 Safety checks: Items removed: yes. Door open/sign placed on door: yes. Family/friend jb1 present: yes. Family/friends encouraged to stay with patient. Sitter present: Yes. 08:30 Safety checks: Items removed: yes. Door open/sign placed on door: yes. Family/friend jb1 present: yes. Family/friends encouraged to stay with patient. Sitter present: Yes. 08:32 initiated transfer with V.A. at this time. ms 08:45 Safety checks: Items removed: yes. Door open/sign placed on door: yes. Family/friend jb1 present: yes. Family/friends encouraged to stay with patient. Sitter present: Yes. 09:00 Safety checks: Items removed: yes. Door open/sign placed on door: yes. Family/friend jb1 present: yes. Family/friends encouraged to stay with patient. Sitter present: Yes. 09:15 Safety checks: Items removed: yes. Door open/sign placed on door: yes. Family/friend jb1 present: no. Sitter present: Yes. 09:30 Safety checks: Items removed: yes. Door open/sign placed on door: yes. Family/friend jb1 present: no. Sitter present: Yes. 09:45 Safety checks: Items removed: yes. Door open/sign placed on door: yes. Family/friend jb1 present: yes. Family/friends encouraged to stay with patient. Sitter present: Yes. 10:00 Safety checks: Items removed: yes. Door open/sign placed on door: yes. Family/friend jb1 present: yes. Family/friends encouraged to stay with patient. Sitter present: Yes. 10:15 Safety checks: Items removed: yes. Door open/sign placed on door: yes. Family/friend jb1 present: yes. Family/friends encouraged to stay with patient. Sitter present: Yes. 10:24 Primary Nurse role handed off by Sherry Catalan RN 10:24 Kenia Cormier RN is Primary Nurse. hb 10:30 Safety checks: Items removed: yes. Door open/sign placed on door: yes. Family/friend jb1 present: no. Sitter present: Yes. 10:45 Safety checks: Items removed: yes. Door open/sign placed on door: yes. Family/friend jb1 present: no. Sitter present: Yes. 11:00 Safety checks: Items removed: yes. Door open/sign placed on door: yes. Family/friend jb1 present: no. Sitter present: Yes. 11:15 Safety checks: Items removed: yes. Door open/sign placed on door: yes. Family/friend jb1 present: no. Sitter present: Yes. 11:30 Safety checks: Items removed: yes. Door open/sign placed on door: yes. Family/friend jb1 present: no. Sitter present: Yes. 11:45 Safety checks: Items removed: yes. Door open/sign placed on door: yes. Family/friend jb1 present: no. Sitter present: Yes. 12:17 No provider procedures requiring assistance completed. Patient did not have IV access hb during this emergency room visit. Administered Medications: 02:00 Drug: NS 0.9% 1000 ml Route: IV; Rate: 1 bolus; Site: right antecubital; lp1 03:17 Follow up: IV Status: Completed infusion; IV Intake: 1000ml lp1 02:20 Drug: Zofran 4 mg Route: IVP; Site: right antecubital; lp1 03:05 Follow up: Response: No adverse reaction; Marked relief of symptoms lp1 02:22 Drug: ProTONIX 40 mg Route: IVP; Site: right antecubital; lp1 03:04 Follow up: Response: Marked relief of symptoms lp1 02:24 Drug: Ativan 1 mg Route: IVP; Site: right antecubital; lp1 03:05 Follow up: Response: Marked relief of symptoms lp1 02:26 Drug: morphine 2 mg Route: IVP; Site: right antecubital; lp1 03:05 Follow up: Response: No adverse reaction; Marked relief of symptoms lp1 03:17 Drug: morphine 2 mg Route: IVP; Site: right antecubital; lp1 03:44 Follow up: Response: No adverse reaction; Marked relief of symptoms lp1 03:42 Drug: NS 0.9% with KCl 20 mEq/L 1000 ml Route: IV; Rate: 125 ml/hr; Site: right lp1 antecubital; Intake: 03:17 IV: 1000ml; Total: 1000ml. lp1 03:17 IV: 1000ml; Total: 2000ml. lp1 07:06 IV: 425ml (IV Fluid); Total: 2425ml. lp1 Output: 03:17 Urine: 350ml (Voided); Total: 350ml. lp1 Outcome: 02:02 ER care complete, transfer ordered by . dontae 12:10 Transferred by ground EMS to [facility] hb 12:10 Condition: stable 12:10 Instructed on the need for transfer, Demonstrated understanding of instructions. 12:18 Patient left the ED. hb Signatures: Dispatcher [employer] EDMS Brad Mera jb1 Christina Velásquez, RESPIRATORY PHYSICIAN-C RESPIRATORY PHYSICIAN-Ckb Carlton Hernandez MD MD cha Ballard, Brenda, RN RN Zoey Santiago ms, Kimberlee kw Pena, Laura, RN RN lp1 Kenia Cormier RN RN Millicent Andrews mw2 Hai Young ag4
[2019-01-08 02:04] LABS: Basophils % 0.6 % (0-1.3); Eosinophils % 1.7 % (0-4.4); Hematocrit 38.2 % (39.6-49.0); Lymphocytes % 50.9 % (15.3-44.8); MPV 7.2 fL (7.6-11.3); Monocytes % 8.3 % (3.3-12.3); RBC Red Blood Cell Count 4.18 M/uL (4.33-5.43)
[2019-01-08] MEDS ORDERED: NA CHLORIDE 0.9% 1,000 ML ONE (02:11)
[2019-01-08] MEDS ORDERED: MORPHINE 2 MG/ML SYR ONE ×2 (02:25→03:18)
[2019-01-08] MEDS ORDERED: ONDANSETRON 4 MG/2 ML VIAL ONE (02:25)
[2019-01-08] MEDS ORDERED: PANTOPRAZOLE 40 MG INJ ONE (02:25)
[2019-01-08] MEDS ORDERED: LORazepam 2 MG/ML VIAL ONE (02:25)
[2019-01-08 02:30] LABS: CKMB Creatine Kinase MB < 1.0 ng/mL (0.3-3.6); Creatine Phosphokinase 103 U/L (39-308)
[2019-01-08 02:35] LABS: ALT/SGPT 27 U/L (12-78); AST/SGOT 17 U/L (15-37); Albumin 3.8 g/dL (3.4-5.0); Alkaline Phosphatase 84 U/L (45-117); BUN Blood Urea Nitrogen 9 mg/dL (7-18); Bicarbonate 30 mmol/L (21-32); Bilirubin Direct < 0.1 mg/dL (0-0.2); Bilirubin Total 0.3 mg/dL (0.2-1.0); Glucose Level 121 mg/dL (74-106); Lipase 120 U/L (73-393); Magnesium 1.9 mg/dL (1.8-2.4); NT PRO-BNP 10 pg/mL (<125); Potassium 3.4 mmol/L (3.5-5.1); Protein, Total 7.1 g/dL (6.4-8.2); Sodium Level 140 mmol/L (136-145); Troponin (Emerg Dept Use Only) < 0.02 ng/mL (0.0-0.045)
[2019-01-08 03:15] LABS: Urine Blood NEGATIVE (NEG); Urine Glucose NEGATIVE (NEG); Urine Protein NEGATIVE (NEG); Urine Specific Gravity 1.015 (1.005-1.030)
[2019-01-08 03:20] LABS: Barbiturates NEGATIVE (NEGATIVE); Benzodiazepines NEGATIVE (NEGATIVE); Cocaine NEGATIVE (NEGATIVE); METHAMPHETAM NEGATIVE (NEGATIVE); Methadone NEGATIVE (NEGATIVE); Opiates NEGATIVE (NEGATIVE); Phencyclidine NEGATIVE (NEGATIVE); THC Cannibis NEGATIVE (NEGATIVE)
[2019-01-08] MEDS ORDERED: NS KCL 20MEQ 1,000 ML IV ONE (03:53)
--- NOTE | 2019-01-08 07:53 | EKG ---
Test Date: 2019-01-08 Test Time: 01:41:40 Physician'S Assistant: NORMAN MEASUREMENT RESULTS: Intervals: Rate: 97 NM: 152 QRSD: 78 QT: 334 QTc: 424 Plummer: P: 52 NM: 152 QRS: 5 T: -3 INTERPRETIVE STATEMENTS: Normal sinus rhythm Possible Left atrial enlargement Septal infarct, age undetermined Abnormal ECG Compared to ECG 11/10/2018 01:09:12 Myocardial infarct finding now present Electronically Signed On 01-08-19 07:53:02 CDT by Chan Kerr
--- NOTE | 2019-01-08 08:11 | RAD REPORT ---
EXAM DESCRIPTION: RAD - Chest Single View - 01/08/2019 2:16 am CLINICAL HISTORY: COUGH Chest pain. COMPARISON: Chest Single View dated 12/12/2018; Chest Single View dated 11/10/2018; Chest Single View dated 11/05/2018 FINDINGS: Portable technique limits examination quality. The lungs are grossly clear. The heart is normal in size. No displaced fractures. IMPRESSION: No acute intrathoracic process suspected.
== END 2019-01-08 12:18 ==
LOC: ER 01:36
DX: T50.902A Poisoning by unspecified drugs, medicaments and biological substances, intentional self-harm, initial encounter (principal); F33.9 Major depressive disorder, recurrent, unspecified; F43.10 Post-traumatic stress disorder, unspecified; R45.851 Suicidal ideations; F17.210 Nicotine dependence, cigarettes, uncomplicated
CPT/HCPCS: 36415; 71045; 80048; 80076; 80307; 80320; 80329; 81003; 82550; 82553; 83690; 83735; 83880; 84484; 85025; 85610; 85730; 93005; 96361; 96374; 96375; 99285; C9113; J2270; J2405; J7030

== ENCOUNTER 2019-04-02 02:38 | Emergency (ER) | payer OTHER ==
--- OUTSIDE RECORDS SUMMARY | 2019-04-02 02:40 | XMS REPORT ---
:1985 [facility] Address [address] [place] [address] [address] [place] [address] Care Team Providers Name Role Phone Unavailable Unavailable Unavailable Problems This patient has no known problems. Allergies, Adverse Reactions, Alerts This patient has no known allergies or adverse reactions. Medications This patient has no known medications.
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
--- NOTE | 2019-04-02 03:11 | EDPHYS ---
Physician Documentation [facility] Name: Karl Andujar Age: 33 yrs Sex: Male : 1985 Arrival Date: 04/02/2019 Time: 02:39 Bed 14 Private MD: ED Physician Wilbert Bingham HPI: 04/02 02:58 This 33 yrs old Male presents to ER via Unassigned with complaints of Dental gs pain. 03:03 The patient presents with pain. Onset: The symptoms/episode began/occurred 1 week(s) gs ago. says had several teeth extracted some of roots were left has tylenol #3 want whole mouth anesthetized has dentist appt today. Historical: - Allergies: 03:01 No Known Allergies; jd3 - Home Meds: 03:01 Buspirone Oral 3 times per day [Active]; Cymbalta Oral [Active]; gabapentin 400 mg Oral jd3 cap 3 times per day [Active]; hydroxyzine HCl 50 mg Oral tab 1 tab as needed [Active]; prazosin 2 mg Oral cap 1 cap daily [Active]; Suboxone sublingual [Active]; - PMHx: 03:01 broken back; Anxiety; Depression; Chronic pain; nightmares; PTSD; jd3 - PSHx: 03:01 Lasik; teeth; jd3 - Immunization history:: Adult Immunizations up to date. - Social history:: Smoking status: Patient uses tobacco products, smokes one pack cigarettes per day. - Ebola Screening: : Patient negative for fever greater than or equal to 101.5 degrees Fahrenheit, and additional compatible Ebola Virus Disease symptoms. ROS: 03:03 All other systems are negative. gs Exam: 03:03 Constitutional: The patient appears alert, awake. gs 03:03 Head/face: Exam is negative for 03:03 ENT: Dental exam: abscess, is not appreciated, gum swelling, that is mild, missing teeth, diffusely. 03:03 Neck: Exam negative for swelling. Vital Signs: 03:01 BP 118 / 83; Pulse 97; Resp 18 S; Temp 97.6(O); Pulse Ox 97% on R/A; Weight 68.04 kg jd3 (R); Height 63 in. (160.02 cm) (R); Pain 10/10; 03:01 Body Mass Index 26.57 (68.04 kg, 160.02 cm) jd3 MDM: 02:58 Patient medically screened. 03:03 Data reviewed: vital signs, nurses notes. Counseling: I had a detailed discussion with suhail the patient and/or guardian regarding: the need for outpatient follow up, a dentist, [place]. Administered Medications: No medications were administered Disposition: 04/02/19 03:10 Discharged to Home. Impression: Encounter for screening, unspecified. - Condition is Stable. - Follow up: Private Physician; When: Today. Signatures: Marilee Monge RN RN aa1 Wilbert Bingham MD MD Manan Cat RN RN jd3 Corrections: (The following items were deleted from the chart) 03:10 03:10 04/02/2019 03:10 Discharged to Home. Impression: Encounter for screening, aa1 unspecified. Condition is Stable. Forms are Medication Reconciliation Form, Thank You Letter, Antibiotic Education, Prescription Opioid Use. Follow up: Private Physician; When: Today.
[2019-04-02 03:28] VITALS: BP 118/83; TEMP 97.6; O2SAT 97
== END 2019-04-02 03:10 | disposition home or self-care (01) ==
LOC: ER 02:38
DX: Z13.9 Encounter for screening, unspecified (principal); F41.9 Anxiety disorder, unspecified; F32.9 Major depressive disorder, single episode, unspecified; F17.210 Nicotine dependence, cigarettes, uncomplicated
CPT/HCPCS: 99282

== ENCOUNTER 2019-04-04 21:52 | Emergency (ER) | payer OTHER ==
--- OUTSIDE RECORDS SUMMARY | 2019-04-04 21:53 | XMS REPORT ---
:1985 [facility] Address [address] [place] [address] [address] [place] [address] Care Team Providers Name Role Phone Unavailable Unavailable Unavailable Problems This patient has no known problems. Allergies, Adverse Reactions, Alerts This patient has no known allergies or adverse reactions. Medications This patient has no known medications.
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
--- NOTE | 2019-04-04 22:27 | EDPHYS ---
Physician Documentation [facility] Name: Karl Andujar Age: 33 yrs Sex: Male : 1985 Arrival Date: 04/04/2019 Time: 21:55 Bed 26 Private MD: ED Physician Carlton Hernandez HPI: 04/04 22:26 This 33 yrs old Male presents to ER via Ambulatory with complaints of Gum pm1 Infection. 22:26 The patient presents with pain. The problem is located in the upper frontal gum pain. pm1 Onset: The symptoms/episode began/occurred 1.5 week(s) ago. Duration: The symptoms are continuous. Modifying factors: The symptoms are alleviated by nothing, the symptoms are aggravated by nothing. Associated signs and symptoms: Pertinent negatives: fever. Severity of symptoms: in the emergency department the symptoms are actually worse. The patient has been recently seen by a physician: with similar presenting complaints, tooth extraction last week and has appointment on Sunday. Historical: - Allergies: 22:16 No Known Allergies; mg2 - Home Meds: 22:16 Buspirone Oral 3 times per day [Active]; Cymbalta Oral [Active]; gabapentin 400 mg Oral mg2 cap 3 times per day [Active]; hydroxyzine HCl 50 mg Oral tab 1 tab as needed [Active]; prazosin 2 mg Oral cap 1 cap daily [Active]; Suboxone sublingual [Active]; - PMHx: 22:16 Anxiety; broken back; Chronic pain; Depression; nightmares; PTSD; mg2 - Immunization history:: Flu vaccine status is unknown. - Ebola Screening: : No symptoms or risks identified at this time. - Social history:: Smoking status: . ROS: 22:26 Constitutional: Negative for fever, chills, and weight loss, Eyes: Negative for injury, pm1 pain, redness, and discharge. 22:26 Neck: Negative for injury, pain, and swelling, Cardiovascular: Negative for chest pain, palpitations, and edema, Respiratory: Negative for shortness of breath, cough, wheezing, and pleuritic chest pain, Abdomen/GI: Negative for abdominal pain, nausea, vomiting, diarrhea, and constipation, Back: Negative for injury and pain, MS/Extremity: Negative for injury and deformity, Skin: Negative for injury, rash, and discoloration, Neuro: Negative for headache, weakness, numbness, tingling, and seizure. 22:26 ENT: Positive for dental pain, Negative for sore throat, difficulty swallowing, difficulty handling secretions, hoarseness. Exam: 22:26 Constitutional: This is a well developed, well nourished patient who is awake, alert, pm1 and in no acute distress. Head/Face: Normocephalic, atraumatic. Eyes: Pupils equal round and reactive to light, extra-ocular motions intact. Lids and lashes normal. Conjunctiva and sclera are non-icteric and not injected. Cornea within normal limits. Periorbital areas with no swelling, redness, or edema. 22:26 Neck: Trachea midline, no thyromegaly or masses palpated, and no cervical lymphadenopathy. Supple, full range of motion without nuchal rigidity, or vertebral point tenderness. No Meningismus. Chest/axilla: Normal chest wall appearance and motion. Nontender with no deformity. No lesions are appreciated. Cardiovascular: Regular rate and rhythm with a normal S1 and S2. No gallops, murmurs, or rubs. Normal PMI, no JVD. No pulse deficits. Respiratory: Lungs have equal breath sounds bilaterally, clear to auscultation and percussion. No rales, rhonchi or wheezes noted. No increased work of breathing, no retractions or nasal flaring. Abdomen/GI: Soft, non-tender, with normal bowel sounds. No distension or tympany. No guarding or rebound. No evidence of tenderness throughout. Back: No spinal tenderness. No costovertebral tenderness. Full range of motion. Skin: Warm, dry with normal turgor. Normal color with no rashes, no lesions, and no evidence of cellulitis. MS/ Extremity: Pulses equal, no cyanosis. Neurovascular intact. Full, normal range of motion. 22:26 ENT: External ear(s): are unremarkable, Ear canal(s): are normal, TM's: are normal, Nose: is normal, Mouth: Lips: normal, Oral mucosa: normal, Gums: on the gums upper frontal, tenderness, no dry sockets present. 22:26 Neuro: Orientation: is normal, Motor: is normal, moves all fours, Sensation: is normal, no obvious gross deficits. Vital Signs: 22:14 BP 123 / 79; Pulse 102; Resp 18; Temp 99.6; Pulse Ox 100% on R/A; Weight 74.84 kg; mg2 Height 5 ft. 3 in. (160.02 cm); Pain 7/10; 22:14 Body Mass Index 29.23 (74.84 kg, 160.02 cm) mg2 MDM: 22:18 Patient medically screened. pm1 22:26 Data reviewed: vital signs. Data interpreted: Pulse oximetry: on room air is 100 %. pm1 Interpretation: normal. Counseling: I had a detailed discussion with the patient and/or guardian regarding: the historical points, exam findings, and any diagnostic results supporting the discharge/admit diagnosis, the need for outpatient follow up, for definitive care, a dentist, to return to the emergency department if symptoms worsen or persist or if there are any questions or concerns that arise at home. 22:27 ED course: [place] patient with 03/18/2019 Suboxone 28 days, 03/16/2019 Tylenol #3 4 pm1 days and 04/01/2019 Tylenol #3 3 days. Will give patient NSAID prescription for pain management. 22:32 ED course: Has appointment with dentist on Sunday. pm1 Administered Medications: No medications were administered Disposition: 04/04/19 22:27 Discharged to Home. Impression: Dental Pain. - Condition is Stable. - Discharge Instructions: Dental Pain. - Prescriptions for Augmentin 875- 125 mg Oral Tablet - take 1 tablet by ORAL route every 12 hours for 10 days; 20 tablet. Diclofenac Sodium 75 mg Oral Tablet Sustained Release - take 1 tablet by ORAL route 2 times per day; 30 tablet. - Medication Reconciliation Form, Thank You Letter, Antibiotic Education, Prescription Opioid Use form. - Follow up: Emergency Department; When: As needed; Reason: Worsening of condition. Follow up: Private Physician; When: 2 - 3 days; Reason: Recheck today's complaints, Continuance of care, Re-evaluation by your physician. - Problem is new. - Symptoms have improved. Addendum: 04/07/2019 09:17 Co-signature as Attending Physician, Carlton Hernandez MD I agree with the assessment and c reinoso plan of care. Signatures: Carlton Hernandez MD MD cha Marinas, Patrick, CIVIL STRUCTURAL DESIGNER CIVIL STRUCTURAL DESIGNER pm1 Pro Morejon RN RN mg2 Riaz, Chris, RN RN rv Corrections: (The following items were deleted from the chart) 04/04 22:47 22:27 04/04/2019 22:27 Discharged to Home. Impression: Dental Pain. Condition is rv Stable. Forms are Medication Reconciliation Form, Thank You Letter, Antibiotic Education, Prescription Opioid Use. Follow up: Emergency Department; When: As needed; Reason: Worsening of condition. Follow up: Private Physician; When: 2 - 3 days; Reason: Recheck today's complaints, Continuance of care, Re-evaluation by your physician. Problem is new. Symptoms have improved. pm1
[2019-04-04 23:12] VITALS: BP 123/79; TEMP 99.6; O2SAT 100
== END 2019-04-04 22:47 | disposition home or self-care (01) ==
LOC: ER 21:52
DX: K08.89 Other specified disorders of teeth and supporting structures (principal); F32.9 Major depressive disorder, single episode, unspecified; F41.9 Anxiety disorder, unspecified; F43.10 Post-traumatic stress disorder, unspecified
CPT/HCPCS: 99282

== ENCOUNTER 2019-07-01 03:47 | Emergency (ER) | payer OTHER ==
--- OUTSIDE RECORDS SUMMARY | 2019-07-01 03:50 | XMS REPORT ---
:1985 Author [facility] Address [address] [place] [address] Care Team Providers Name Role Phone Unavailable Unavailable Unavailable Payers Payer Name Policy Type Policy Number Effective Date Expiration Date Problems This patient has no known problems. Allergies, Adverse Reactions, Alerts Allergy Allergy Status Severity Reaction(s) Onset Inactive Treating Comments Name Type Date Date Clinician No Known DA Active U 2012-01 Allergies -15 00:00:0 0 Medications This patient has no known medications.
[2019-07-01 04:47] LABS: Absolute Lymphocytes (CBC) 4.8 K/uL (0.7-4.9); Basophils % 0.5 % (0-1.3); Hematocrit 37.7 % (39.6-49.0); Lymphocytes % 46.3 % (15.3-44.8); RBC Red Blood Cell Count 4.16 M/uL (4.33-5.43)
[2019-07-01 04:48] LABS: Protime INR 1.02
[2019-07-01 05:02] LABS: ALT/SGPT 30 U/L (12-78); AST/SGOT 21 U/L (15-37); Albumin 3.8 g/dL (3.4-5.0); Alkaline Phosphatase 84 U/L (45-117); BUN Blood Urea Nitrogen 18 mg/dL (7-18); Bicarbonate 27 mmol/L (21-32); Bilirubin Direct 0.1 mg/dL (0-0.2); Bilirubin Total 0.4 mg/dL (0.2-1.0); Glucose Level 113 mg/dL (74-106); NT PRO-BNP 16 pg/mL (<125); Potassium 3.7 mmol/L (3.5-5.1); Protein, Total 6.6 g/dL (6.4-8.2); Sodium Level 137 mmol/L (136-145); Troponin (Emerg Dept Use Only) < 0.02 ng/mL (0.0-0.045)
--- NOTE | 2019-07-01 05:27 | ER ---
Nurse's Notes [facility] Name: Karl Andujar Age: 33 yrs Sex: Male : 1985 Arrival Date: 07/01/2019 Time: 03:49 Bed 25 Private MD: Diagnosis: Hemoptysis Presentation: 07/01 03:50 Presenting complaint: Patient states: The chest pain and coughing up blood started jb4 about 2 hours ago. The chest pain is worse when I inhale and its a deep pressure pain. 03:50 Transition of care: patient was not received from another setting of care. Onset of jb4 symptoms was July 01, 2019. Risk Assessment: Do you want to hurt yourself or someone else? Patient reports no desire to harm self or others. Initial Sepsis Screen: Does the patient meet any 2 criteria? HR > 90 bpm. Yes Does the patient have a suspected source of infection? No. Patient's initial sepsis screen is negative. Care prior to arrival: None. 03:50 Method Of Arrival: Wheelchair jb4 03:50 Acuity: IRENE 2 jb4 Historical: - Allergies: 03:50 No Known Allergies; jb4 - Home Meds: 03:50 Suboxone sublingual [Active]; prazosin 2 mg Oral cap 1 cap daily [Active]; hydroxyzine jb4 HCl 50 mg Oral tab 1 tab as needed [Active]; gabapentin 400 mg Oral cap 3 times per day [Active]; Cymbalta Oral [Active]; - PMHx: 03:50 Anxiety; broken back; Chronic pain; Depression; nightmares; PTSD; jb4 - PSHx: 03:50 None; jb4 - Immunization history:: Adult Immunizations up to date. - Social history:: Smoking status: Patient uses tobacco products, smokes one-half pack cigarettes per day, Patient/guardian denies using alcohol, street drugs. - Ebola Screening: : No symptoms or risks identified at this time. Screenin:50 Abuse screen: Denies threats or abuse. Nutritional screening: No deficits noted. jb4 Tuberculosis screening: Possible symptoms: recent bloody sputum. Fall Risk None identified. Assessment: 03:50 General: Appears in no apparent distress. uncomfortable, Behavior is calm, cooperative. jb4 Pain: Complains of pain in chest Pain does not radiate. Pain currently is 7 out of 10 on a pain scale. Quality of pain is described as pressure, Pain began 2 hours ago. Is continuous, Aggravated by Inhalation. Neuro: Level of Consciousness is awake, alert, obeys commands, Oriented to person, place, time, situation. Cardiovascular: Heart tones S1 S2 present Patient's skin is warm and dry. Rhythm is sinus tachycardia. Respiratory: Reports coughing up blood. Airway is patent Respiratory effort is even, unlabored, shallow, Respiratory pattern is regular, symmetrical, Breath sounds are clear bilaterally. GI: No signs and/or symptoms were reported involving the gastrointestinal system. : No signs and/or symptoms were reported regarding the genitourinary system. EENT: No signs and/or symptoms were reported regarding the EENT system. Derm: Skin is intact, Skin is pink, warm \T\ dry. Musculoskeletal: Circulation, motion, and sensation intact. Range of motion: intact in all extremities. 05:00 Reassessment: Patient appears in no apparent distress at this time. No changes from [facility] previously documented assessment. Patient and/or family updated on plan of care and expected duration. Pain level reassessed. Patient is alert, oriented x 3, equal unlabored respirations, skin warm/dry/pink. 05:42 Reassessment: Patient appears in no apparent distress at this time. Patient and/or jb4 family updated on plan of care and expected duration. Pain level reassessed. Patient is alert, oriented x 3, equal unlabored respirations, skin warm/dry/pink. PT waiting for IV fluids to finish prior to d/c. 06:14 Reassessment: Patient appears in no apparent distress at this time. Patient and/or jb4 family updated on plan of care and expected duration. Pain level reassessed. Patient is alert, oriented x 3, equal unlabored respirations, skin warm/dry/pink. PT verbalized under standing of d/c and follow up instructions. ambulated out of ED with steady gait. Patient states feeling better. Vital Signs: 03:50 BP 120 / 83; Pulse 101; Resp 18; Temp 98.4(O); Pulse Ox 96% on R/A; Weight 68.04 kg jb4 (R); Height 5 ft. 3 in. (160.02 cm) (R); Pain 7/10; 04:42 BP 123 / 81; Pulse 100; Resp 18; Pulse Ox 96% on R/A; ds4 05:42 BP 92 / 62; Pulse 76; Resp 12; Pulse Ox 94% on R/A; jb4 06:14 BP 102 / 75; Pulse 75; Resp 16; Pulse Ox 96% on R/A; jb4 03:50 Body Mass Index 26.57 (68.04 kg, 160.02 cm) jb4 ED Course: 03:49 Patient arrived in ED. ak1 03:49 Elton Graham MD is Attending Physician. tw4 03:50 Arm band placed on right wrist. jb4 03:50 Patient has correct armband on for positive identification. Placed in gown. Bed in low jb4 position. Call light in reach. Side rails up X 1. front desk monitor on. Pulse ox on. NIBP on. 04:05 EKG done, by ED staff, reviewed by Elton Graham MD. ds4 04:07 Rob Tavares, RN is Primary Nurse. jb4 04:10 Triage completed. jb4 04:12 Inserted saline lock: 18 gauge in left wrist, using aseptic technique. Blood collected. ds4 04:26 Basic Metabolic Panel Sent. ds4 04:26 CBC with Diff Sent. ds4 04:26 LFT's Sent. ds4 04:26 Magnesium Sent. ds4 04:26 NT PRO-BNP Sent. ds4 04:26 PT-INR Sent. ds4 04:26 Troponin (emerg Dept Use Only) Sent. ds4 05:25 Nelson Hall MD is Referral Physician. tw4 06:14 No provider procedures requiring assistance completed. IV discontinued, intact, jb4 bleeding controlled, No redness/swelling at site. Pressure dressing applied. Administered Medications: 05:40 Drug: NS 0.9% 1000 ml Route: IV; Rate: 1 bolus; Site: left femoral; jb4 06:17 Follow up: Response: No adverse reaction; IV Status: Completed infusion; IV Intake: jb4 1000ml Intake: 06:17 IV: 1000ml; Total: 1000ml. jb4 Outcome: 05:26 Discharge ordered by . tw4 06:14 Discharged to home ambulatory. jb4 06:14 Condition: stable 06:14 Discharge instructions given to patient, Instructed on discharge instructions, follow up and referral plans. Demonstrated understanding of instructions, follow-up care. 06:18 Patient left the ED. jb4 Signatures: Rome Shabazz ds4 Jocelyn Reyes RN RN ak1 Rob Tavares RN RN jb4 Elton Graham MD MD tw4 Corrections: (The following items were deleted from the chart) 04:22 03:50 Cardiovascular: Patient's skin is warm and dry. jb4 jb4 05:45 05:42 BP 92 / 62; Pulse 76bpm; Resp 12bpm; Pulse Ox 96% RA; jb4 jb4
--- NOTE | 2019-07-01 05:28 | EDPHYS ---
Physician Documentation [facility] Name: Karl Andujar Age: 33 yrs Sex: Male : 1985 Arrival Date: 07/01/2019 Time: 03:49 Bed 25 Private MD: ED Physician Elton Graham HPI: 07/01 04:14 This 33 yrs old Male presents to ER via Wheelchair with complaints of tw4 coughing up blood. 04:14 The patient or guardian reports cough, with productive sputum, that is bloody. Onset: tw4 The symptoms/episode began/occurred just prior to arrival, 2 hour(s) ago. Severity of symptoms: At their worst the symptoms were mild, in the emergency department the symptoms are unchanged. Modifying factors: The symptoms are alleviated by nothing, the symptoms are aggravated by nothing. Associated signs and symptoms: The patient has no apparent associated signs or symptoms. The patient has experienced similar episodes in the past, several times, multiple times, and the symptoms today are exactly the same, to previous Pt has had several visits to the emergency department with similar complaints. Pt has had several negative workups in the ED. Pt has been admitted twice normal bronchoscopy. No trauma, no fever + active smoker told to quit smoking. The patient has not recently seen a physician. Historical: - Allergies: 03:50 No Known Allergies; jb4 - Home Meds: 03:50 Suboxone sublingual [Active]; prazosin 2 mg Oral cap 1 cap daily [Active]; hydroxyzine jb4 HCl 50 mg Oral tab 1 tab as needed [Active]; gabapentin 400 mg Oral cap 3 times per day [Active]; Cymbalta Oral [Active]; - PMHx: 03:50 Anxiety; broken back; Chronic pain; Depression; nightmares; PTSD; jb4 - PSHx: 03:50 None; jb4 - Immunization history:: Adult Immunizations up to date. - Social history:: Smoking status: Patient uses tobacco products, smokes one-half pack cigarettes per day, Patient/guardian denies using alcohol, street drugs. - Ebola Screening: : No symptoms or risks identified at this time. ROS: 04:14 Constitutional: Negative for fever, chills, and weight loss, Eyes: Negative for injury, tw4 pain, redness, and discharge, Cardiovascular: Negative for chest pain, palpitations, and edema, Abdomen/GI: Negative for abdominal pain, nausea, vomiting, diarrhea, and constipation, Back: Negative for injury and pain, MS/Extremity: Negative for injury and deformity, Skin: Negative for injury, rash, and discoloration, Neuro: Negative for headache, weakness, numbness, tingling, and seizure. 04:14 Respiratory: Positive for cough, hemoptysis, Negative for dyspnea on exertion, orthopnea, pleurisy, shortness of breath, sputum production, wheezing. Exam: 04:14 Constitutional: This is a well developed, well nourished patient who is awake, alert, tw4 and in no acute distress. Head/Face: Normocephalic, atraumatic. Eyes: Pupils equal round and reactive to light, extra-ocular motions intact. Lids and lashes normal. Conjunctiva and sclera are non-icteric and not injected. Cornea within normal limits. Periorbital areas with no swelling, redness, or edema. Chest/axilla: Normal chest wall appearance and motion. Nontender with no deformity. No lesions are appreciated. Cardiovascular: Regular rate and rhythm with a normal S1 and S2. No gallops, murmurs, or rubs. Normal PMI, no JVD. No pulse deficits. Respiratory: Lungs have equal breath sounds bilaterally, clear to auscultation and percussion. No rales, rhonchi or wheezes noted. No increased work of breathing, no retractions or nasal flaring. Abdomen/GI: Soft, non-tender, with normal bowel sounds. No distension or tympany. No guarding or rebound. No evidence of tenderness throughout. Back: No spinal tenderness. No costovertebral tenderness. Full range of motion. MS/ Extremity: Pulses equal, no cyanosis. Neurovascular intact. Full, normal range of motion. Neuro: Awake and alert, GCS 15, oriented to person, place, time, and situation. Cranial nerves II-XII grossly intact. Motor strength 5/5 in all extremities. Sensory grossly intact. Cerebellar exam normal. Normal gait. Psych: Awake, alert, with orientation to person, place and time. Behavior, mood, and affect are within normal limits. Vital Signs: 03:50 BP 120 / 83; Pulse 101; Resp 18; Temp 98.4(O); Pulse Ox 96% on R/A; Weight 68.04 kg jb4 (R); Height 5 ft. 3 in. (160.02 cm) (R); Pain 7/10; 04:42 BP 123 / 81; Pulse 100; Resp 18; Pulse Ox 96% on R/A; ds4 05:42 BP 92 / 62; Pulse 76; Resp 12; Pulse Ox 94% on R/A; jb4 06:14 BP 102 / 75; Pulse 75; Resp 16; Pulse Ox 96% on R/A; jb4 03:50 Body Mass Index 26.57 (68.04 kg, 160.02 cm) jb4 MDM: 03:49 Patient medically screened. tw4 05:23 Data reviewed: vital signs, nurses notes. Data reviewed: lab test result(s), CBC, white tw4 blood cell count, hemoglobin, hematocrit, platelets, electrolytes, sodium, potassium, chloride, serum bicarbonate, BUN, creatinine, serum glucose, hepatic panel. Data interpreted: Pulse oximetry: Interpretation: normal. Counseling: I had a detailed discussion with the patient and/or guardian regarding: the historical points, exam findings, and any diagnostic results supporting the discharge/admit diagnosis, lab results, radiology results. Special discussion: I discussed with the patient/guardian in detail that at this point there is no indication for admission to the hospital. It is understood, however, that if the symptoms persist or worsen the patient needs to return immediately for re-evaluation. ED course: Pt has had multiple visits to the ED a with this complaint and each time has had a normal chest X-ray and workup. Pt not had any episodes of hemoptysis in the ED. VS have been stable and pt has had no new complaints. Will refer to pulmonology . 07/01 03:51 Order name: Basic Metabolic Panel tw4 07/01 03:51 Order name: CBC with Diff tw4 07/01 03:51 Order name: LFT's tw4 07/01 03:51 Order name: Magnesium tw4 07/01 03:51 Order name: NT PRO-BNP tw4 07/01 03:51 Order name: PT-INR tw4 07/01 03:51 Order name: Troponin (emerg Dept Use Only) tw4 07/01 04:52 Order name: CBC with Automated Diff; Complete Time: 05:16 EDMS 07/01 05:16 Interpretation: Normal except: RBC 4.16; HCT 37.7; HGB 13.2; LYM% 46.3. 4 07/01 04:52 Order name: Protime (+INR); Complete Time: 05:16 EDMS 07/01 05:17 Interpretation: Within normal limits: PT 12.0. 4 07/01 05:02 Order name: Basic Metabolic Panel; Complete Time: 05:16 EDMS 07/01 05:16 Interpretation: Normal except: GLUC 113. tw4 07/01 05:02 Order name: Liver (Hepatic) Function; Complete Time: 05:16 EDMS 07/01 05:17 Interpretation: Within normal limits. tw4 07/01 05:03 Order name: Troponin (Emerg Dept Use Only); Complete Time: 05:16 EDMS 07/01 05:18 Interpretation: Within normal limits: TROPED < 0.02. 07/01 05:03 Order name: NT PRO-BNP; Complete Time: 05:16 EDMS 07/01 05:18 Interpretation: Within normal limits: NT PRO-BNP 16. 07/01 05:03 Order name: Magnesium; Complete Time: 05:16 EDMS 07/01 05:18 Interpretation: Within normal limits: MG 2.0. 07/01 03:51 Order name: XRAY Chest (1 view) 07/01 03:51 Order name: EKG; Complete Time: 03:52 07/01 03:51 Order name: Cardiac monitoring; Complete Time: 04:25 07/01 03:51 Order name: EKG - Nurse/Tech; Complete Time: 04:25 07/01 03:51 Order name: IV Saline Lock; Complete Time: 04:25 07/01 03:51 Order name: Labs collected and sent; Complete Time: 04:25 07/01 03:51 Order name: O2 Per Protocol; Complete Time: 04:26 07/01 03:51 Order name: O2 Sat Monitoring; Complete Time: 04:26 EC:14 Rate is 102 beats/min. Rhythm is regular, Sinus tachycardia. QRS [place] is Normal. VT tw4 interval is normal. QRS interval is normal. QT interval is normal. No Q waves. T waves are Normal. No ST changes noted. Clinical impression: Sinus tachycardia. Interpreted by me. Reviewed by me. Administered Medications: 05:40 Drug: NS 0.9% 1000 ml Route: IV; Rate: 1 bolus; Site: left femoral; jb4 06:17 Follow up: Response: No adverse reaction; IV Status: Completed infusion; IV Intake: jb4 1000ml Disposition: 07/01/19 05:26 Discharged to Home. Impression: Hemoptysis. - Condition is Stable. - Discharge Instructions: Hemoptysis, Cough, Adult. - Medication Reconciliation Form, Thank You Letter, Antibiotic Education, Prescription Opioid Use form. - Follow up: Nelson Hall MD; When: Upon discharge from the Emergency Department; Reason: Recheck today's complaints, Continuance of care. - Problem is new. - Symptoms have improved. Signatures: Dispatcher [employer] EDMS Rob Tavares, RN RN jb4 Elton Graham MD MD tw4 Corrections: (The following items were deleted from the chart) 06:18 05:26 07/01/2019 05:26 Discharged to Home. Impression: Hemoptysis. Condition is Stable. jb4 Forms are Medication Reconciliation Form, Thank You Letter, Antibiotic Education, Prescription Opioid Use. Follow up: Nelson Hall; When: Upon discharge from the Emergency Department; Reason: Recheck today's complaints, Continuance of care. Problem is new. Symptoms have improved. tw4
[2019-07-01] MEDS ORDERED: NA CHLORIDE 0.9% 1,000 ML ONE (05:32)
[2019-07-01 06:30] VITALS: TEMP 98.4
[2019-07-01 06:35] VITALS: BP 102/75; O2SAT 96
--- NOTE | 2019-07-01 06:53 | EKG ---
Test Date: 2019-07-01 Test Time: 04:01:08 Training Program Assistant: TREVOR MEASUREMENT RESULTS: Intervals: Rate: 102 IL: 136 QRSD: 76 QT: 338 QTc: 440 [place]: P: 31 IL: 136 QRS: 2 T: 36 INTERPRETIVE STATEMENTS: Sinus tachycardia Otherwise normal ECG Compared to ECG 01/08/2019 01:41:40 Sinus rhythm no longer present Myocardial infarct finding no longer present Electronically Signed On 07-01-19 06:53:05 [employer] DEVELOPER by Chan Kerr
--- NOTE | 2019-07-01 08:13 | RAD REPORT ---
EXAM DESCRIPTION: [place] Single View07/01/2019 4:10 am CLINICAL HISTORY: Cough COMPARISON: December 2018 FINDINGS: The lungs appear clear of acute infiltrate. The heart is normal size IMPRESSION: No acute abnormalities displayed
== END 2019-07-01 06:18 | disposition home or self-care (01) ==
LOC: ER 03:47
DX: R04.2 Hemoptysis (principal); F17.210 Nicotine dependence, cigarettes, uncomplicated; F43.10 Post-traumatic stress disorder, unspecified; F32.9 Major depressive disorder, single episode, unspecified; F41.9 Anxiety disorder, unspecified
CPT/HCPCS: 93005; 85025; 80048; 36415; 83735; 85610; 80076; 84484; 83880; 71045; 96360; 99284; J7030